=== PATIENT | female | born 1975 | race Caucasian/White ===

== ENCOUNTER → 2018-07-09 08:48 | Outpatient (CLI) | payer OTHER, SELFPAY ==
[2018-07-09 12:10] LABS: Absolute Lymphocyte Count 3.18 X10^3/ul (0.83-4.51); Absolute Neutrophil Count 4.2 X10^3/uL (2.0-7.7); Basophil# 0.09 X10^3/uL; Basophil% 1.1 % (0-1); Eosinophil# 0.28 X10^3/uL; Eosinophils% 3.4 % (0-5); Hematocrit 42.6 % (37-47); Hemoglobin 13.9 g/dl (12.0-15.0); Lymphocyte # 3.18 X10^3/ul (4.0); Lymphocyte % 38.2 % (19-41); Mean Corp Hgb Conc 32.6 g/gl (32-36); Mean Corpuscular Volume 95.1 fL (81-99); Monocyte# 0.53 X10^3/uL; Monocyte% 6.4 % (0-10); Neutrophil # 4.22 X10^3/uL (2.7-7.7); Neutrophil % 50.5 % (47-70); Platelet Count 269 K/mm3 (150-450); RBC Distribution Width SD 41.1 fl (35.1-43.9); Red Blood Count 4.48 M/mm3 (4.2-5.4); White Blood Count 8.3 K/mm3 (4.4-11.0)
[2018-07-09 12:22] LABS: POSITIVE COUNT NO; POSITIVE DIFFERENTIAL NO; POSITIVE MORPHOLOGY NO
[2018-07-09 12:35] LABS: ALB/GLOB Ratio 0.9 RATIO (0.9-2.4); AST(SGOT) 19 U/L (15-37); Alanine Aminotransfer ALT/SGPT 28 U/L (13-56); Albumin, Serum 3.5 g/dL (3.2-5.0); Alkaline Phosphatase 137 U/L (45-117); Anion Gap 6 (5-15); BUN 16 mg/dL (7-18); BUN/Creat Ratio 17.4 RATIO (10-20); Calcium,Total 8.5 mg/dL (8.5-10.1); Chloride 107 mmol/L (98-107); Cholesterol 135 mg/dL (200); Creatinine, Serum 0.92 mg/dL (0.55-1.02); EST Glomerular Filtration Rate 70 mL/min (>60); Est Glom Filt Rate - Afr Amer 85 mL/min (>60); Globulin 3.8 g/dL (2.2-4.2); Glucose 88 mg/dL (74-106); High Density Lipoprotein 44 mg/dL; Potassium 4.4 mmol/L (3.5-5.1); Protein, Total 7.3 g/dL (6.4-8.2); Sodium Level 142 mmol/L (136-145); Triglycerides 92 mg/dL; Very Low Density Lipoprotein 18 mg/dL (5-40)
== END ==
PROVIDERS: Family Provider Family Medicine; PCP Family Medicine; Visit Provider Family Medicine
DX: Z00.00 Encounter for general adult medical examination without abnormal findings (principal)
CPT/HCPCS: 36415; 80053; 80061; 85025

== ENCOUNTER 2018-07-14 07:41 | Day surgery (SDC) | payer OTHER, SELFPAY ==
[2018-06-04 13:23] VITALS: BMI 32.6
[2018-07-14 08:02] LABS: Internal QC Validated? YES +Cl - CLEAR BKGD; Pregnancy, Urine Negative Negative
[2018-07-14 08:03] VITALS: BP 117/70; PULSE 70; RESP 14; TEMP 36.9; O2SAT 100; BMI 32.7
[2018-07-14 08:55] VITALS: BP 109/77; BP 117/70; PULSE 74; RESP 18; TEMP 36.4; O2SAT 98
--- NOTE | 2018-07-14 08:59 | OP.ENDO_ITS ---
Patient Name: Corinne Weeks Procedure Date: 07/14/2018 8:23 AM Date of : 1975 Age: 43 Procedure: Colonoscopy Indications: High risk colon cancer surveillance: Personal history of adenoma (10 mm or greater in size) Providers: Monet Brewster MD Medicines: Monitored Anesthesia Care Patient Profile: Last Colonoscopy: 3 years ago. Complications: No immediate complications. Procedure: Pre-Anesthesia Assessment: - Prior to the procedure, a History and Physical was performed, and patient medications and allergies were reviewed. The patient's tolerance of previous anesthesia was also reviewed. The risks and benefits of the procedure and the sedation options and risks were discussed with the patient. All questions were answered, and informed consent was obtained. Prior Anticoagulants: The patient has taken no previous anticoagulant or antiplatelet agents. ASA Grade Assessment: II - A patient with mild systemic disease. After reviewing the risks and benefits, the patient was deemed in satisfactory condition to undergo the procedure. After I obtained informed consent, the scope was passed under direct vision. Throughout the procedure, the patient's blood pressure, pulse, and oxygen saturations were monitored continuously. The colonoscope was introduced through the anus and advanced to the cecum, identified by the appendiceal orifice, ileocecal valve and palpation. The colonoscopy was performed without difficulty. The patient tolerated the procedure well. The quality of the bowel preparation was good. Scope In: 8:35:55 AM Scope Withdrawal Time 0 hours 12 minutes 57 seconds Scope Out: 8:53:20 AM Total Procedure Duration Time 0 hours 17 minutes 25 seconds Findings: A single small-mouthed diverticulum was found in the sigmoid colon. The exam was otherwise without abnormality on direct and retroflexion views. The perianal and digital rectal examinations were normal. Impression: - Diverticulosis in the sigmoid colon. - The examination was otherwise normal on direct and retroflexion views. - No specimens collected. Recommendation: - Discharge patient to home. - High fiber diet. - Continue present medications. - Repeat colonoscopy in 5 years for surveillance, due to hx of 11mm TA at age 40. Procedure Code(s): --- Professional --- G0105, Colorectal cancer screening; colonoscopy on individual at high risk Diagnosis Code(s): --- Professional --- Z86.010, Personal history of colonic polyps K57.30, Diverticulosis of large intestine without perforation or abscess without bleeding CPT copyright 2017 [employer]. All rights reserved. The codes documented in this report are preliminary and upon data processor review may be revised to meet current compliance requirements. MD Monet Nguyễn MD 07/14/2018 8:58:55 AM This report has been signed electronically. Number of Addenda: 0 Note Initiated On: 07/14/2018 8:23 AM
[2018-07-14 09:00] VITALS: BP 102/73; BP 117/70; PULSE 65; RESP 18; O2SAT 99
[2018-07-14 09:05] VITALS: BP 105/84; BP 117/70; PULSE 66; RESP 18; O2SAT 100
[2018-07-14 09:10] VITALS: BP 104/67; BP 117/70; PULSE 67; RESP 18; TEMP 36.2; O2SAT 100
[2018-07-14 09:20] VITALS: BP 117/70
== END 2018-07-14 09:29 | disposition home or self-care (01) ==
LOC: EN 07:42 → AC 07:44
PROVIDERS: Anesthesiology; Family Provider Family Medicine; PCP Family Medicine; Referring Provider Surgery; Visit Provider Surgery
PROC: 0DJD8ZZ Inspection of Lower Intestinal Tract, Via Natural or Artificial Opening Endoscopic (ICD-10-PCS; CPT 45378; principal; 2018-07-14 08:40)
DX: K57.30 Diverticulosis of large intestine without perforation or abscess without bleeding (principal); Z86.010 Personal history of colon polyps; Z80.0 Family history of malignant neoplasm of digestive organs; Z87.891 Personal history of nicotine dependence
CPT/HCPCS: 45378; 81025; J7120

== ENCOUNTER → 2019-06-15 07:35 | Outpatient (CLI) | payer OTHER, SELFPAY ==
--- NOTE | 2019-06-15 07:40 | BI_ITS ---
MAMMOGRAPHY - BILATERAL SCREENING REASON FOR EXAM: Female, 43 years old. Routine annual screening examination. PERTINENT HISTORY: Aunts with breast cancer. TECHNIQUE: Digital bilateral breast carol (3D mammographic acquisition) in the CC and MLO projections. 2-D mediolateral oblique (MLO) and craniocaudad (CC) views of both breasts were obtained. CAD: Full Field Digital Mammography with Computer Added Detection was performed. COMPARISON: Comparison is made with prior outside examination of November 19, 2016. FINDINGS: Breast Composition: The breasts are extremely dense, which lowers the sensitivity of mammography. There are no dominant masses or suspicious calcifications. No other significant abnormalities are identified. There has been no significant change since the prior study. BI/SCREEN MAMM (CAD) W/CAROL BILAT IMPRESSION: Stable bilateral screening mammogram. Yearly follow-up mammogram recommended. (A) ASSESSMENT CATEGORY: BIRADS Category 1: Negative. A letter regarding these results will be sent to the patient by the facility within 30 days. Approximately 10% of breast cancers are not detected by mammography. A normal mammogram should not delay biopsy of a clinically suspicious abnormality. [id number] Electronically Signed: Jigar Chi, at 10:44 EDT , Service support ,
== END ==
PROVIDERS: Family Provider Family Medicine; PCP Family Medicine; Referring Provider Family Medicine; Visit Provider Family Medicine
DX: Z12.31 Encounter for screening mammogram for malignant neoplasm of breast (principal)
CPT/HCPCS: 77063; 77067

== ENCOUNTER 2021-11-02 16:26 | Outpatient (CLI) | payer BC, SELFPAY ==
--- NOTE | 2021-11-02 16:30 | RAD_ITS ---
EXAM: XR LEFT FOOT, 2 VIEWS CLINICAL INDICATION: FRACTURE FOLLOW UP TECHNIQUE: Frontal and lateral views of the left foot. This report was created using [employer] report generation technology. COMPARISON: None. FINDINGS: BONES/JOINTS: There is a calcaneal spur. No acute fracture. No subluxation. Normal alignment. Preservation of the joint space. No sclerotic or destructive changes observed. SOFT TISSUES: Unremarkable. No soft tissue swelling or gas. No radiopaque foreign body. RAD/Foot 2 Views IMPRESSION: No acute findings in the left foot. Electronically Signed: Kt Major MD at 16:33 EST ,
== END 2021-11-02 23:59 | disposition home or self-care (01) ==
LOC: MTRAD 16:29
PROVIDERS: PCP Family Medicine; Referring Provider Internal Medicine; Visit Provider Internal Medicine
DX: M79.672 Pain in left foot (principal); S92.902D Unspecified fracture of left foot, subsequent encounter for fracture with routine healing
CPT/HCPCS: 73620

== ENCOUNTER → 2023-01-18 | Outpatient (CLI) | payer OTHER, SELFPAY ==
[2023-01-29 12:09] LABS: HPV APTIMA, High Risk Negative (Negative)
== END | disposition home or self-care (01) ==
LOC: LABSPEC 16:52
PROVIDERS: PCP Family Medicine; Visit Provider Registered Nurse
DX: Z12.4 Encounter for screening for malignant neoplasm of cervix (principal)
CPT/HCPCS: 87624; 88175; G0145

== ENCOUNTER → 2023-01-23 | Outpatient (CLI) | payer OTHER, SELFPAY ==
--- NOTE | 2023-01-23 15:36 | BI_ITS ---
MAMMOGRAPHY - BILATERAL SCREENING REASON FOR EXAM: Female, 47 years old. Routine annual screening examination. PERTINENT HISTORY: Aunts with breast cancer. History of prior right needle biopsy. TECHNIQUE: Digital bilateral breast carol (3D mammographic acquisition) in the CC and MLO projections. 2-D mediolateral oblique (MLO) and craniocaudad (CC) views of both breasts were obtained. CAD: Full Field Digital Mammography with Computer Added Detection was performed. COMPARISON: Comparison is made with prior study dated June 15, 2019. FINDINGS: Breast Composition: The breasts are extremely dense, which lowers the sensitivity of mammography. There are no dominant masses or suspicious calcifications. There is a tissue clip marker is seen in the upper retroareolar region of the right breast. No other significant abnormalities are identified. There has been no significant change since the prior study. BI/SCRN MAMM (CAD)W/CAROL BILAT IMPRESSION: Stable bilateral screening mammogram. Yearly follow-up mammogram recommended. (A) ASSESSMENT CATEGORY: BIRADS Category 2: Benign. A letter regarding these results will be sent to the patient by the facility within 30 days. Approximately 10% of breast cancers are not detected by mammography. A normal mammogram should not delay biopsy of a clinically suspicious abnormality. [id number] Electronically Signed: Jigar Chi MD at 8:56 EDT ,
== END | disposition home or self-care (01) ==
PROVIDERS: PCP Family Medicine; Referring Provider Registered Nurse; Visit Provider Registered Nurse
DX: Z12.31 Encounter for screening mammogram for malignant neoplasm of breast (principal)
CPT/HCPCS: 77063; 77067

== ENCOUNTER → 2025-02-12 | Outpatient (CLI) | payer BC, SELFPAY ==
--- OUTSIDE RECORDS SUMMARY | 2025-02-12 07:13 | XMS RPT_ITS | CCD ---
Author Organization [facility] Care Team Providers Care Lining Cementer Name Role Phone Dr. Marilin Max Primary Care Provider Dr. Marilin Max Referring Provider Bertha GRAMAJO, ROX Gilbert Attending Provider Dr. Marilin Max Primary Care Provider Dr. Marilin Max Referring Provider OSCAR Coley Attending Provider Marilin Max MD Primary Care Provider Dr. Marilin Max MD Primary Care Provider [phone] Winter UMANZOR, Dr. Gaston Referring Provider Radha Lim Attending Provider Marilin Max Primary Care Unavailable Marilin Max Referring Unavailable Radha Guillen NP Attending Unavailable Monet Brewster Attending Unavailable Care Physician, No Primary Primary Care Unava ilable Care Physician, No Primary Primary Care Unava ilable Radha Guillen NP Attending Unavailable Radha Guillen NP Referring Unavailable Medications Current Medications Medication Drug Class(es) Dates Sig (Normalized) Sig (Original) escitalopram 10 mg oral tablet (1 source) Serotonin Reuptake Inhibitor Start: 07-04-2017 take 1 tablet by mouth once daily escitalopram oxalate (LEXAPRO) 10 mg tablet Indications: Anxiety Take 1 tablet by mouth once daily. 90 tablet 1 07/04/2017 Active Ibuprofen (1 source) Nonsteroidal Anti-inflammatory Drug IBUPROFEN ORAL Take by mouth. Active Lacona (Nk) (1 source) Start: 01-22-2024 Lacona (Nk) Active January 22, 2024 12:00am Completed/Discontinued Medications Medication Drug Class(es) Dates Sig (Normalized) Sig (Original) benzonatate 200 mg oral capsule (3 sources) Non-narcotic Antitussive Start: 09-06-2021 End: 01-18-2023 take 1 capsule by mouth three times daily as needed for cough Benzonatate 200 mg capsule Discontinued 200 mg PO THREE TIMES A DAY as needed for cough September 06, 2021 1:00am January 18, 2023 3:23pm Problems Active Problems Problem Classification Problem Date Documented Da te Episodic/Chronic Acute bronchitis (3 sources) Acute bronchitis; Translations: [Acute bronchitis, unspecified] Episodic Adjustment disorders (1 source) Adjustment disorder; Translations: [Adjustment disorder, unspecified] Onset: 09-15-2007 03-05-2024 Chronic Anxiety disorders (1 source) Anxiety; Translations: [Anxiety disorder, unspecified] Onset: 07-23-2016 07-23-2016 Chronic Immunizations and screening for infectious disease (3 sources) Patient encounter status; Translations: [Encounter for screening for COVID-19] Episodic Nutritional deficiencies (1 source) Vitamin D deficiency, unspecified; Translations: [Vitamin D deficiency, unspecified] Onset: 02-01-2025 Chronic Other screening for suspected conditions (not mental disorders or infectious disease) (7 sources) Encounter for screening mammogram for malignant neoplasm of breast; Translations: [Encounter for other screening for malignant neoplasm of breast] Onset: 02-01-2025 Episodic Unclassified (2 sources) Encounter for screening for malignant neoplasm of colon; Translations: [Z12.11 - Encounter for screening for malignant neoplasm of colon] Past or Other Problems Problem Classification Problem Date Documented Da te Episodic/Chronic Abdominal pain (1 source) Abdominal pain; Translations: [Unspecified abdominal pain] Onset: 09-14-2014 09-14-2014 Episodic Other and unspecified benign neoplasm (1 source) Fibroadenoma of breast; Translations: [Benign neoplasm of unspecified breast] Onset: 12-07-2016 12-07-2016 Episodic Other female genital disorders (1 source) Premenstrual tension syndrome; Translations: [Premenstrual tension syndrome] Onset: 12-27-2008 Resolved: 08-22-2012 08-22-2012 Chronic Other female genital disorders (1 source) Abnormal uterine bleeding; Translations: [Abnormal uterine and vaginal bleeding, unspecified] Onset: 07-15-2012 Resolved: 08-22-2012 08-22-2012 Chronic Other gastrointestinal disorders (1 source) Diarrhea; Translations: [Diarrhea, unspecified] Onset: 09-14-2014 09-14-2014 Episodic Results Test Name Value Interpretation Reference Range Facility Marketing And Outreach Coordinator Office Visit Reporton 02-01-2025 Marketing And Outreach Coordinator Office Visit Report [facility] [address], [address] [place] [address] OFFICE VISIT Date of Service: 02/01/25 MR#: [id number] Acct: [id number] Name: CORINNE WEEKS Rep #: [id number] : 1975 Provider: GINA anaya Age/Sex: 49/F Location: [facility] [place] Status: Signed Intake Vital Signs 01/22/24 15:22 02/01/25 15:10 02/01/25 15:19 Height 5 ft 8 in 5 ft 8 in 5 ft 8 in Weight: 242 lb BMI 36.8 BP 124/82 H 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 Complaint: 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 Production 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 Required: No Is patient in pain?: No Allergies No Known Allergies Allergy (Unverified 02/01/25 15:10) Medications ???Medication ???Instructions ???Recorded ???Confirmed ???Type NK 01/22/24 02/01/25 History Is last menstrual period known: No Post menopausal: No Patient : No : No PFSH Medical History History of endometrial biopsy Family History Mother Colon cancer Hypertension Father Diabetes Social History Smoking Status: Former smoker alcohol intake: current alcohol intake frequency: a few times a week HPI Encounter for routine gynecological examination Details: CORINNE WEEKS is a 49 year old who presents for annual exam. Denies LANDSCAPE ACCOUNT MANAGER concerns. No menses since ablation Last PAP: 2022 History of abnormal PAP: no Last mammogram: 2022 History of abnormal mammogram: benign bx Colon cancer screening: Q5yr, 2018 Other preventative health care screenings: none Female Reproductive History Questions: metorrhagia: No, sexually active: Yes, dyspareunia: No and PCB: No ROS Const Constitutional: Denies fatigue, weight gain or weight loss Cardio Card: Denies chest pain Resp Resp: Denies cough or dyspnea on exertion GI GI: Denies abdominal pain, bloating, change in stool character, constipation or vomiting : Reports as per HPI; Denies difficulty voiding, pelvic pain, urinary frequency, urinary incontinence, urinary urgency, vaginal discharge or vaginal pruritus Exam Const General: cooperative, healthy appearing, no acute distress and well developed Orientation: alert, oriented to person and oriented to place HENW[place] Head: normal to inspection Neck Neck: normal visual inspection Thyroid: thyroid normal Lymphatic: no lymphadenopathy noted Chest Breast inspection: normal inspection of the breasts and normal inspection of the axillae Breast palpation: normal palpation of the breasts, normal palpation of the axillae and no axillary lymphadenopathy Resp Effort Inspection: normal respiratory effort GI Palpation: soft, no masses and nontender Rectal Exam: deferred External Female Exam: normal external appearance and normal appearance of the urethra Urethra: normal appearance of the urethra and normal palpation Speculum Exam - Vagina: normal appearance of the vagina and normal vaginal discharge Speculum Exam - Cervix: normal appearance of the cervix Bimanual Exam- Vagina Uterus: normal bimanual exam, uterine size normal, uterine shape normal and non-tender Bimanual Exam- Adnexa, other: normal adnexae, no masses, normal and non-tender Pelvic Support: normal Neuro General: patient alert and patient oriented x3 Psych Affect: normal affect Coding Level of Care Code Off vis,est,prev 40-64yrs Diagnoses Encounter for gynecological examination without abnormal finding Z01.419 Gynecological examination findings: abnormal findings ABSENT Assessment and Plan Assessment and Plan (1) Encounter for routine gynecological examination: Qualifiers: Gynecological examination findings: abnormal findings ABSENT Qualified Code(s): Z01.419 - Encounter for gynecological examination (general) (routine) without abnormal findings Orders: Orders SCRN MAMM (CAD)W/CAROL BILAT Today Z12.39 - Encounter for other screening for malignant neoplasm of breast Vitamin D,25 Hydroxy Today E55.9 - Vitamin D deficiency, unspecified Lipid Profile Today Z13.220 - Encounter for screening for lipoid disorders Glucose Today Z13.1 - Encounter for screening for diabetes mellitus Thyroid Stim Hormone (TSH) Today Z13.29 - Encounter for screening for other suspected endocrine disorder Referrals General Surgery Z12.11 - Encounter for screening for malignant neoplasm of colon Plan Completed breast and pelvic exam Reviewed diet and exercise Pap 2022 Mammogram ordered breast self exam encouraged monthly Health screen labs Information for PCPs to establish with Colonoscopy ref to Dr Brewster as she is overdue RTO 1 year, prn with problems Radha Guillen OTR REFR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 02/01/25 1536 Date _ (more content not included)... Normal [facility] Cervical or vagninal specime n microscopic examination by cytology stain (reported asOrdered By: Radha Coely on 01-18-2023 Cytology report Cyto stain Doc (Cvx/Vag) Comment . [facility] Comment on above: The Pap smear is a s creening test designed to aid in thedetection of premalignant and malignant conditions of theuterine cervix. It is not a diagnostic procedure andshould not be used as the sole means of detecting cervicalcancer. Both false-positive and false-negative reports dooccur. Detection in cervical specim en of any of human papilloma virus (HPV) 16, 18, 31, 33,Ordered By: Radha Coley on 01-18-2023 HPV 16+18+31+33+35+39+45+51 +52+56+58+59+66+68 DNA Probe+sig amp Ql (Cvx) Negative Negative [facility] Comment on above: This nucleic acid am plification test detects fourteen high-risk HPV types (16,18,31,33,35,39,45,51,52,56,58,59,66,68)without differentiation. Laboratory - CytologyOrdered By: Radha Coley on 01-18-2023 Nurse Instructor Cyto stain Nom (Cvx/Vag) [ID] Comment . [facility] Comment on above: Conor Jacob totechnologist (ASCP) Laboratory - Miscellaneous t estsOrdered By: Radha Coley on 01-18-2023 Service comment (Unsp spec) [Interp] Comment . [facility] Comment on above: This liquid based Th inPrep(R) pap test was screened withthe use of an image guided system. Service comment (Unsp spec) [Interp] . . [facility] Liquid-based cerv Pap + CT/G C by SUNI w reflex to high-risk HPV for ASCUSOrdered By: Radha Coley on 01-18-2023 Cytology report Cyto stain.thin prep Doc (Cvx/Vag) Comment . [facility] Comment on above: Criteria not met, HP V Genotype not performed.Performed at: [facility] [id number] [place], [place] [id number] Director: Santos Cole MD, Phone: [phone] at: - [facility] [id number] Director: Gale Moseley MD, Phone: [phone] at: =G - [facility] [id number] Director: Gale Moseley MD, Phone: [phone] No Panel InformationOrdered By: Radha Coley on 01-18-2023 Pathology report final diagnosis Narrative Comment . [facility] Comment on above: NEGATIVE FOR INTRAEP ITHELIAL LESION OR MALIGNANCY. CNOVon 10-16-2021 CNOV Office Visit (UCTR ) CORINNE WEEKS ([id number]) 1975 F Date Time Provider Department 10/16/21 8:45 AM KARIE PALACIOS [facility] During your visit today, we recorded the following information about you: Temperature Pulse Respiration Blood pressure 97.7 degrees 88/minute 16/minute 118/70 Weight 103 kg Karie Palacios APRN.OTR REFR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 10/16/2021 10:19 AM Signed Subjective HPI HPI Corinne Weeks is a 46 year old female who presents today for CC of fall this morning resulting in left foot pain and right leg pain. Symptoms are worsened by walking. Denies numbness/tingling of bilat lower extremities. Denies past injury/surgery to bilat lower extremity. Denies hx of diabetes. .Patient presents with: Pain (foot): left foot pain, fell down steps this am PAST MEDICAL HISTORY Diagnosis Date - Menorrhagia PAST SURGICAL HISTORY Procedure Laterality Date - COLONOSCOPY FLX DX W/COLLJ SPEC WHEN PFRMD 10/27/2014 Colonoscopy - PAST SURGICAL HISTORY OF upper teeth extraction - S CATH ABLATION THERMACHOICE 2011 menorrhagia ALLERGIES Patient has no known allergies. MEDICATIONS escitalopram oxalate (LEXAPRO) 10 mg tablet Take 1 tablet by mouth once daily. IBUPROFEN ORAL Take by mouth. FAMILY HISTORY Problem Relation Age of Onset - Hypertension Mother - Colon Cancer Mother - Diabetes Father - other (Skin Cancer Removal) Brother Regular Screenings - Heart Maternal Grandmother GA - Multiple Sclerosis Daughter - Breast Cancer Paternal Aunt - Breast Cancer Paternal Aunt - Cancer Maternal Uncle Throat Cancer - Colon Cancer Maternal Aunt Social History Tobacco Use - Smoking status: Former Smoker Packs/day: 0.80 Years: 20.00 Pack years: 16.00 Types: Cigarettes - Smokeless tobacco: Never Used Substance Use Topics - Alcohol use: Yes Comment: Rarely - Drug use: No ROS Objective Blood pressure 118/70, pulse 88, temperature 36.5 ?C (97.7 ?F), resp. rate 16, weight 103 kg (227 lb), last menstrual period 09/11/2014, SpO2 98 %. Physical Exam Constitutional: General: She is not in acute distress. Appearance: She is not toxic-appearing or diaphoretic. HENT: Head: Normocephalic and atraumatic. Cardiovascular: Pulses: Dorsalis pedis pulses are 1+ on the right side and 1+ on the left side. Posterior tibial pulses are 1+ on the right side and 1+ on the left side. Pulmonary: Effort: Pulmonary effort is normal. No accessory muscle usage or respiratory distress. Musculoskeletal: Right knee: Normal. Right lower leg: Swelling, tenderness and bony tenderness present. No deformity or lacerations. Right ankle: Normal. Left ankle: Normal. Left Achilles Tendon: No tenderness. Legs: Neurological: Mental Status: She is alert and oriented to person, place, and time. ASSESSMENT/PLAN: 1. Foot injury, left, initial encounter - ICD9: 959.7, ICD10: S99.922A (primary diagnosis) As below - XR FOOT GENERAL 3V AP/LAT/OBL LEFT Impression: Transverse fracture of the proximal phalanx of the left second toe ? Dictated by : AUGIE RUDD MD - CEPHALEXIN 500 MG CAPSULE 2. Right leg injury, initial encounter - ICD9: 959.7, ICD10: S89.91XA xr negative - XR TIBIA FIBULA 2V AP/LAT RIGHT Impression: 1. No acute fracture or dislocation. ? ? Dictated by : AUGIE RUDD MD 3. Closed non-physeal fracture of proximal phalanx of lesser toe of left foot, initial encounter - ICD9: 826.0, ICD10: S92.512A Post op shoe provided, pain relief discussed F/u in 7-10 days for continued/changing/wo rsening s/s. Red flags discussed. Agrees to plan Karie Palacios APRN.OTR REFR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 Referring Provider: SELF [200] Allergies As of Date: 10/16/2021 (No Known Allergies) Date Reviewed: 10/16/2021 Reviewed by: Karie Palacios APRN.OTR REFR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 - Fully Assessed Reason for Visit: Pain (foot) [760] Cmt: left foot pain, fell down steps this am Primary Visit Diagnosis:Foot injury, left, initial encounter [S99.922A] Other Visit Diagnoses:Right leg injury, initial encounter [S89.91XA] Closed non-physeal fracture of proximal phalanx of lesser toe of left foot, initial encounter [S92.512A] Order(s):XR FOOT GENERAL 3V AP/LAT/OBL LEFT [[id number]] Order #: [id number]. #:[id number] XR TIBIA FIBULA 2V AP/LAT RIGHT [[id number]] Order #: [id number]. #:[id number] cephALEXin (KEFLEX) 500 mg capsuleTake 1 capsule by mouth twice daily for 5 days.Disp: 10 capsuleRfl: 0 Prescriptions as of 10/16/2021 - cephALEXin (KEFLEX) 500 mg capsule Take 1 capsule by mouth twice daily for 5 days. - escitalopram oxalate (LEXAPRO) 10 mg tablet Take 1 tablet by mouth once daily. - IBUPROFEN ORAL Take by mouth. Problem List As Of Date 10/16/2021 Noted Resolved ADJUSTMENT REACTION NOS [F43.20] 09/15/2007 Premenstrual tension syndromes [N94.3] 12/27/2008 08/22/2012 Abnormal uter (more content not included)... Normal [facility] No Panel InformationOrdered By: Ccf Provider on 10-16-2021 [facility] No Panel Informationon 10-16 Radiology Study observation (narrative) [facility] XR FOOT 3V AP/LAT/OBL LTon 0 10-16-2021 XR FOOT 3V AP/LAT/OBL LT * * *Final Report* * * DATE OF EXAM: Oct 16 2021 9:36AM WOX 5336 - XR FOOT 3V AP/LAT/OBL LT / PROCEDURE REASON: Foot injury, left, initial encounter * * * * Physician Interpretation * * * * Indication: Left foot pain after fall downstairs Comparison: None 3 views of the left foot are obtained. There is a transverse fracture of the distal aspect of the proximal phalanx of the left second toe. No dislocation. Joint spaces are maintained. There is a plantar calcaneal spur. Impression: Transverse fracture of the proximal phalanx of the left second toe Social Media Sr Strategy Manager: [facility] Transcribe Date/Time: Oct 16 2021 9:46A Dictated by : AUGIE RUDD MD This examination was interpreted and the report reviewed and electronically signed by: AUGIE RUDD MD on Oct 16 2021 9:48AM EST [id number] Normal [facility] XR Foot - left AP and Latera l and obliqueon 10-16-2021 * * *Final Report* * * DATE OF EXAM: Oct 16 2021 9:36AM WOX 5336 - XR FOOT 3V AP/LAT/OBL LT / PROCEDURE REASON: Foot injury, left, initial encounter * * * * Physician Interpretation * * * * Indication: Left foot pain after fall downstairs Comparison: None 3 views of the left foot are obtained. There is a transverse fracture of the distal aspect of the proximal phalanx of the left second toe. No dislocation. Joint spaces are maintained. There is a plantar calcaneal spur. Impression: Transverse fracture of the proximal phalanx of the left second toe Social Media Sr Strategy Manager: [facility] Transcribe Date/Time: Oct 16 2021 9:46A Dictated by : AUGIE RUDD MD This examination was interpreted and the report reviewed and electronically signed by: AUGIE RUDD MD on Oct 16 2021 9:48AM [facility] DIVISION OF RADIOLOGY Provider, [facility] - 10/16/2021 * * *Final Report* * * DATE OF EXAM: Oct 16 2021 9:36AM WOX 5336 - XR FOOT 3V AP/LAT/OBL LT / PROCEDURE REASON: Foot injury, left, initial encounter * * * * Physician Interpretation * * * * Indication: Left foot pain after fall downstairs Comparison: None 3 views of the left foot are obtained. There is a transverse fracture of the distal aspect of the proximal phalanx of the left second toe. No dislocation. Joint spaces are maintained. There is a plantar calcaneal spur. Impression: Transverse fracture of the proximal phalanx of the left second toe Social Media Sr Strategy Manager: [facility] Transcribe Date/Time: Oct 16 2021 9:46A Dictated by : AUGIE RUDD MD This examination was interpreted and the report reviewed and electronically signed by: AUGIE RUDD MD on Oct 16 2021 9:48AM [facility] XR TIBIA FIBULA 2V AP/LAT RT on 10-16-2021 XR TIBIA FIBULA 2V AP/LAT RT * * *Final Report* * * DATE OF EXAM: Oct 16 2021 9:36AM WOX 5266 - XR TIBIA FIBULA 2V AP/LAT RT / PROCEDURE REASON: Right leg injury, initial encounter * * * * Physician Interpretation * * * * Indication: Right leg pain Comparison: None AP and lateral x-rays of the right tibia and fibula are obtained. There is normal architecture and mineralization of the bones. There is no acute fracture or dislocation. Joint spaces are maintained. Impression: 1. No acute fracture or dislocation. Social Media Sr Strategy Manager: [facility] Transcribe Date/Time: Oct 16 2021 9:49A Dictated by : AUGIE RUDD MD This examination was interpreted and the report reviewed and electronically signed by: AUGIE RUDD MD on Oct 16 2021 9:49AM EST [id number] Normal [facility] XR Tibia and Fibula - right AP and Lateralon 10-16-2021 * * *Final Report* * * DATE OF EXAM: Oct 16 2021 9:36AM WOX 5266 - XR TIBIA FIBULA 2V AP/LAT RT / PROCEDURE REASON: Right leg injury, initial encounter * * * * Physician Interpretation * * * * Indication: Right leg pain Comparison: None AP and lateral x-rays of the right tibia and fibula are obtained. There is normal architecture and mineralization of the bones. There is no acute fracture or dislocation. Joint spaces are maintained. Impression: 1. No acute fracture or dislocation. Social Media Sr Strategy Manager: KELIN Transcribe Date/Time: Oct 16 2021 9:49A Dictated by : AUGIE RUDD MD This examination was interpreted and the report reviewed and electronically signed by: AUGIE RUDD MD on Oct 16 2021 9:49AM EST DIVISION OF RADIOLOGY Provider, [facility] - 10/16/2021 * * *Final Report* * * DATE OF EXAM: Oct 16 2021 9:36AM WOX 5266 - XR TIBIA FIBULA 2V AP/LAT RT / PROCEDURE REASON: Right leg injury, initial encounter * * * * Physician Interpretation * * * * Indication: Right leg pain Comparison: None AP and lateral x-rays of the right tibia and fibula are obtained. There is normal architecture and mineralization of the bones. There is no acute fracture or dislocation. Joint spaces are maintained. Impression: 1. No acute fracture or dislocation. Social Media Sr Strategy Manager: [facility] Transcribe Date/Time: Oct 16 2021 9:49A Dictated by : AUGIE RUDD MD This examination was interpreted and the report reviewed and electronically signed by: AUGIE RUDD MD on Oct 16 2021 9:49AM EST [facility] No Panel Informationon 09-06 POC SARS CoV-2 Antigen Negative Wo [facility] Work Phone: Vital Signs Date Time Vital Sign Value Performing Clinician Faci lity 02-01-2025 15:19-0400 Body height 172.[address] Marilin Max MD Work Phone: [facility] 02-01-2025 15:10-0400 Body mass index (BMI) [Ratio] 36.8 kg/m2 Dr. Marilin Max MD Work Phone: [facility] 02-01-2025 15:10-0400 Body weight 109.[address] Marilin Max MD Work Phone: [facility] 02-01-2025 15:10-0400 Diastolic blood pressure 82 mm[Hg] Dr. Marilin Max MD Work Phone: [facility] 02-01-2025 15:10-0400 Systolic blood pressure 124 mm[Hg] Dr. Marilin Max MD Work Phone: [facility] 01-18-2023 15:28-0400 Body height 172.[address] Marilin Max Work Phone: [facility] 01-18-2023 15:09-0400 Body mass index (BMI) [Ratio] 34.9 kg/m2 Dr. Marilin Max Work Phone: [facility] 01-18-2023 15:09-0400 Body weight 104.[address] Marilin Max Work Phone: [facility] 01-18-2023 15:09-0400 Diastolic blood pressure 77 mm[Hg] Dr. Marilin Max Work Phone: [facility] 01-18-2023 15:09-0400 Systolic blood pressure 121 mm[Hg] Dr. Marilin Max Work Phone: [facility] 09-06-2021 09:45-0500 Body height 172.[address] Marilin Max Work Phone: [facility] Work Phone: 09-06-2021 09:45-0500 Body mass index (BMI) [Ratio] 34.3 kg/m2 Dr. Marilin Max Work Phone: [facility] Work Phone: 09-06-2021 09:45-0500 Body temperature 97.5 [degF] Dr. Marilin Max Work Phone: [facility] Work Phone: 09-06-2021 09:45-0500 Body weight 102.[address] Marilin Max Work Phone: [facility] Work Phone: 09-06-2021 09:45-0500 Diastolic blood pressure 62 mm[Hg] Dr. Marilin Max Work Phone: [facility] Work Phone: 09-06-2021 09:45-0500 Heart rate 93 /min Dr. Marilin Max Work Phone: [facility] Work Phone: 09-06-2021 09:45-0500 Respiratory rate 16 /min Dr. Marilin Max Work Phone: [facility] Work Phone: 09-06-2021 09:45-0500 SaO2% (BldA) [Mass fraction] 98 % Dr. Marilin Max Work Phone: [facility] Work Phone: 09-06-2021 09:45-0500 Systolic blood pressure 126 mm[Hg] Dr. Marilin Max Work Phone: [facility] Work Phone: Encounters Encounter Date Encounter Type Care Provider Facility Start: 03-17-2025 ambulatory Monet Robotham Facilit y:[facility] Start: 02-12-2025 ambulatory No Primary Car e Physician Facility:[facility] Start: 02-01-2025 End: 02-01-2025 Patient encounter procedure Radha Guillen ASSOCIATE PROFESSOR OF COMMUNICATION-C -[facility] Work Phone: Start: 02-01-2025 End: 02-01-2025 Patient encounter status Radha Guillen ASSOCIATE PROFESSOR OF COMMUNICATION-C [facility] Start: 02-01-2025 End: 02-01-[address] Marilin Max MD Work Phone: [facility] Work Phone: Start: 01-23-2023 End: 01-23-[address] Marilin Max Work Phone: [facility] Work Phone: Start: 01-23-2023 End: 01-23-2023 Patient encounter procedure Dr. Marilin Max Work Phone: [facility] Work Phone: Start: 01-18-2023 End: 01-18-[address] Marilin Max Work Phone: [facility] Specimen Work Phone: Start: 01-18-2023 End: 01-18-[address] Marilin Max Work Phone: [facility] Work Phone: Start: 11-02-2021 End: 11-02-[address] Marilin Max Work Phone: [facility] [place] Start: 10-16-2021 End: 10-16-2021 Subsequent hospital visit by physician Vikas [facility] Work Phone: Radiology Comment on above: Foot injury, left, i nitial encounter [S99.922A] Start: 09-06-2021 End: 09-06-[address] Marilin Max Work Phone: [facility] Procedures Date Procedure Procedure Detail Performing Clinician Start: 01-23-2023 Screening mammography Dixie Max Work Phone: Start: 11-02-[address] Marilin Max Work Phone: Start: 10-16-2021 Radex foot complete minimum 3 views Karie Palacios APRN.CNP Work Phone: Start: 04-14-2016 Lipid 1996 panel - S mustapha or Plasma Xr Laurel Work Phone: Start: 10-27-2014 Colonoscopy Xr Horacio Work Phone: Plan of Treatment Date Care Activity Detail Author Start: 02-01-2025 Patient referral [facility] Work Phone: Start: 04-26-2024 Covid-19 Vaccine ( season) Covid-19 Vaccine () [facility] Start: 04-26-2024 Influenza vaccination Influenza Vaccine (#1) [facility] [facility] Start: 2023 Shingrix Vaccine (1 of 2) Shingrix Vaccine (1 of 2) [facility] Start: 11-19-2021 Screening for malignant neoplasm of cervix Cervical Cancer Screening [facility] Start: 04-14-2021 Lipid panel Lipid Screening [facility] Start: 04-14-2019 Diabetes Screening Diabetes Screening [facility] Start: 2018 Screening for malignant neoplasm of colon [facility] Start: 11-19-2017 Screening for malignant neoplasm of breast Mammogram Screening [facility] Start: 10-27-2017 Screening for malignant neoplasm of colon [facility] Start: 1992 Hepatitis B Vaccine (1 of 3 - 19+ 3-dose series) Hepatitis B Vaccine (1 of 3 - 19+ 3-dose series) [facility] Start: 1992 Urine microalbumin profile DTaP,Tdap,Td Vaccine (1 - Tdap) [facility] Start: 1991 Depression Screening Depression Screening [facility] Start: 1991 Hepatitis C screening Hepatitis C Screening [facility] Start: 1991 HIV screening HIV Screening [facility] Glucose [Mass/volume ] in Serum or Plasma [facility] Lipid 1996 panel - S mustapha or Plasma [facility] MG Breast - bilatera l Screening [facility] Patient referral [facility] Work Phone: Thyroid stimulating hormone measurement [facility] Vitamin D, 25-hydrox y measurement [facility] Immunizations Immunization Date Immunization Notes Care Provider [facility] 05-22-2016 influenza virus vaccine, unspecified formulation X[facility] Work Phone: [facility] 05-24-2009 influenza virus vaccine, unspecified formulation X[facility] Work Phone: [facility] Work Phone: Payers Date Payer Category Payer Self-pay [id number] 2025 Unknown [id number] 2020 Unknown [employer] C[employer] PPO OOS [id number] 2020-Present [phone] [address] [place] [address] PPO [id number] Private Health Insurance [facility] [id number] Unknown [id number] Unknown [id number] Unknown [id number] Unknown [id number] Social History Date Type Detail Facility Start: 09-06-2021 End: 01-18-2023 Tobacco smoking status NHIS Unknown if ever smoked [facility] Start: 07-09-2018 Cigarettes [facility] Start: 1975 Sex Assigned At Female W [facility] Start: 11-02-2015 End: 01-18-2023 Tobacco smoking status NHIS Ex-smoker [facility] History of tobacco use Current smoker [facility] History of tobacco use Cigarette Smoker [facility] Start: 11-02-2015 End: 10-16-2021 Cigarettes smoked current (pack per day) - Reported 0.8 [facility] Start: 11-02-2015 Tobacco use and exposure Smokeless tobacco non-user [facility] Start: 10-16-2021 Alcoholic beverage intake Current drinker of alcohol (finding) [facility] Start: 10-16-2021 Tobacco use panel [facility] Start: 11-19-2016 Alcohol Comment Rarely [facility] Start: 1975 Sex assigned at Not on file C [facility] Start: 09-16-2021 End: 10-16-2021 Exposure to SARS-CoV-2 (event) Not sure [facility] Clinical Note 01-18-2023 Note Date & Type Note Facility 01-18-2023 Note [facility] Pap Smear Specimen Adequacy January 18, 2023 5:05pm Comment . Satisfactory for evaluation. Endocervical and/or squamous metaplasticcells (endocervical component) are present. Comment on above: Satisfactory for swati luation. Endocervical and/or squamous metaplasticcells (endocervical component) are present. 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 Author Type: Nurse Practitioner Type: Progress Notes Filed: 10/16/2021 10:19 AM Note Text: Subjective HPI HPI Corinne Weeks is a 46 year old female who presents today for CC of fall this morning resulting in left foot pain and right leg pain. Symptoms are worsened by walking. Denies numbness/tingling of bilat lower extremities. Denies past injury/surgery to bilat lower extremity. Denies hx of diabetes. .Patient presents with: Pain (foot): left foot pain, fell down steps this am PAST MEDICAL HISTORY Diagnosis Date - Menorrhagia PAST SURGICAL HISTORY Procedure Laterality Date - COLONOSCOPY FLX DX W/COLLJ SPEC WHEN PFRMD 10/27/2014 Colonoscopy - PAST SURGICAL HISTORY OF upper teeth extraction - S CATH ABLATION THERMACHOICE 2011 menorrhagia ALLERGIES Patient has no known allergies. MEDICATIONS escitalopram oxalate (LEXAPRO) 10 mg tablet Take 1 tablet by mouth once daily. IBUPROFEN ORAL Take by mouth. FAMILY HISTORY Problem Relation Age of Onset - Hypertension Mother - Colon Cancer Mother - Diabetes Father - other (Skin Cancer Removal) Brother Regular Screenings - Heart Maternal Grandmother [place] - Multiple Sclerosis Daughter - Breast Cancer Paternal Aunt - Breast Cancer Paternal Aunt - Cancer Maternal Uncle Throat Cancer - Colon Cancer Maternal Aunt Social History Tobacco Use - Smoking status: Former Smoker Packs/day: 0.80 Years: 20.00 Pack years: 16.00 Types: Cigarettes - Smokeless tobacco: Never Used Substance Use Topics - Alcohol use: Yes Comment: Rarely - Drug use: No ROS Objective Blood pressure 118/70, pulse 88, temperature 36.5 ?C (97.7 ?F), resp. rate 16, weight 103 kg (227 lb), last menstrual period 09/11/2014, SpO2 98 %. Physical Exam Constitutional: General: She is not in acute distress. Appearance: She is not toxic-appearing or diaphoretic. HENT: Head: Normocephalic and atraumatic. Cardiovascular: Pulses: Dorsalis pedis pulses are 1+ on the right side and 1+ on the left side. Posterior tibial pulses are 1+ on the right side and 1+ on the left side. Pulmonary: Effort: Pulmonary effort is normal. No accessory muscle usage or respiratory distress. Musculoskeletal: Right knee: Normal. Right lower leg: Swelling, tenderness and bony tenderness present. No deformity or lacerations. Right ankle: Normal. Left ankle: Normal. Left Achilles Tendon: No tenderness. Legs: Neurological: Mental Status: She is alert and oriented to person, place, and time. ASSESSMENT/PLAN: 1. Foot injury, left, initial encounter - ICD9: 959.7, ICD10: S99.922A (primary diagnosis) As below - XR FOOT GENERAL 3V AP/LAT/OBL LEFT Impression: Transverse fracture of the proximal phalanx of the left second toe ? Dictated by : AUGIE RUDD MD - CEPHALEXIN 500 MG CAPSULE 2. Right leg injury, initial encounter - ICD9: 959.7, ICD10: S89.91XA xr negative - XR TIBIA FIBULA 2V AP/LAT RIGHT Impression: 1. No acute fracture or dislocation. ? ? Dictated by : AUGIE RUDD MD 3. Closed non-physeal fracture of proximal phalanx of lesser toe of left foot, initial encounter - ICD9: 826.0, ICD10: S92.512A Post op shoe provided, pain relief discussed F/u in 7-10 days for continued/changing/worsening s/s. Red flags discussed. Agrees to plan Karie Palacios APRN.[facility] Progress note 10-16-2021 Note Date & Type Note Facility 10-16-2021 Note HNO ID: [id number] Author: RT Jose(R) Service: Radiology Author Type: Technologist Type: Progress Notes Filed: 10/16/2021 9:37 AM Note Text: Radiology Service Progress Note PATIENT NAME: Corinne Weeks DATE OF SERVICE: October 16, 2021 TIME: 9:21 AM PATIENT IDENTITY VERIFICATION COMPLETED USING TWO (2) IDENTIFIERS: Name and Date of confirmed by patient verbally. FALL SCREENING: Has the patient had 2 falls in the last year or 1 fall with injury or currently using an Ambulatory Assistive Device (Walker, Cane, Wheelchair, Crutches, etc.)? No PATIENT GENDER DATA: Female. status: : No status: NO. PATIENT RELEVANT IMPLANT DATA REVIEWED: Yes RADIOLOGY DEPARTMENT: General X-ray: Exam(s) Completed: Lower Extremity X-Ray(s): Tibia Fibula, Right and Foot, Left and Wt. Bearing PERIPHERAL IV DATA: Not applicable SIGNED BY: RT Jose(R) October 16, 2021 9:21 AM [facility] History of Present illness Narrative 10-16-2021 Delores Levy RT(R) - 10/16/2021 9:20 AM EST Note Date & Type Note Facility 10-16-2021 History of Presen t illness Narrative Radiology Service Progress Note PATIENT NAME: Corinne Weeks DATE OF SERVICE: October 16, 2021 TIME: 9:21 AM PATIENT IDENTITY VERIFICATION COMPLETED USING TWO (2) IDENTIFIERS: Name and Date of confirmed by patient verbally. FALL SCREENING: Has the patient had 2 falls in the last year or 1 fall with injury or currently using an Ambulatory Assistive Device (Walker, Cane, Wheelchair, Crutches, etc.)? No PATIENT GENDER DATA: Female. status: : No status: NO. PATIENT RELEVANT IMPLANT DATA REVIEWED: Yes RADIOLOGY DEPARTMENT: General X-ray: Exam(s) Completed: Lower Extremity X-Ray(s): Tibia Fibula, Right and Foot, Left and Wt. Bearing PERIPHERAL IV DATA: Not applicable SIGNED BY: Delores Levy RT(R) October 16, 2021 9:21 AM documented in this encounter [facility] Evaluation note Note Date & Type Note Facility Evaluation note Diagnosis Onset Date Acute bronchitis, unspecified acute Encounter for screening for COVID-19 acute [facility] Work Phone: Evaluation note Note Date & Type Note Facility Evaluation note Diagnosis Onset Date Encounter for routine gyneco logical examination noneactive [facility] Work Phone: Evaluation note Note Date & Type Note Facility Evaluation note Diagnosis Onset Date Resolution Encounter for routine gynecological examination noneactive February 01, 2025 3:04pm [facility] Work Phone: Hospital Discharge instructions Note Date & Type Note Facility Hospital Discharge instructions Ambulatory OrdersGeneral Surgery Location: None Selected [facility] Work Phone: Reason for visit Narrative Diagnostic Procedure Only (Urgent) - Closed Note Date & Type Note Facility Reason for visit Narrative Specialty Diagnoses / Procedures Referred By Contac t Referred To Contact XR IMAGING Diagnoses Foot injury, left, initial encounter Procedures XR FOOT GENERAL 3V AP/LAT/OBL LEFT RADEX FOOT COMPLETE MINIMUM 3 VIEWS Karie Palacios APRN.OTR RE[employer]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 [address] [place] [address] [place] [address] Referral ID Status Reason Start Date Expiration Date V isits Requested Visits Authorized [id number] Closed Auto-Generate d Referral 10/16/2021 11/15/2022 1 1 [facility] Summary Purpose Family History No Family History Records Found Relationship Condition Age at Onset Recorded Date/T gavi mother Malignant neoplasm of colon Unknown Hypertension Unknown father Diabetes mellitus Unknown Advance Directives No Advanced Directives Records Found Advance Directive Response Recorded Date/ Time Living Will No July 09, 018 11:32am Power of Staff [employer] No July 09, 2018 11:32am Chief Complaint and Reason for Visit Chief Complaint CONGESTION/COVID BARBARA T LEFT FOOT XRAY - FRACTURE FOLLOW UP Reason for Visit Acute bronchitis, un specified Encounter for screening for COVID-19 Chief Complaint 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 Reason for Visit Encounter for routin e gynecological examination Chief Complaint Admit Date Annual (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 MANAGER) February 01, 2025 3:04p m Reason for Visit Admit Date Encounter for routine gynecological exam ination February 01, 2025 3:04pm Additional Source Comments INFORMATION SOURCE (unrecogn ized section and content) DATE CREATED AUTHOR 11/13/2021 [facility] DATE CREATED AUTHOR AUTHOR'S ORGANIZ ATION 02/10/2025 [facility] Goals (unrecognized section and content) Goals may be documented in a n alternate sectionGoals may be documented in an alternate sectionGoals may be documented in an alternate section Care Teams (unrecognized sec tion and content) Team Status: Active Member Role Status Dates Dr. Marilin Max MD Family Provider Active Dr. Marilin Max MD Primary Care Provider Active Team Status: Inactive Member Role Status Dates Dr. Marilin Max MD Primary Care Provider, Referrin g Provider Active Radha Coley CNM Attending Provider Active Team Status: Inactive Member Role Status Dates Dr. Marilin Mxa MD Primary Care Provider Active Radha Coley CNM Attending Provider, Referring Pr clarence Active Team Status: Inactive Member Role Status Dates Dr. 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 Marilin Max MD Primary Care Provider Active Start: February 01, 2025 End: February 01, 2025 Dr. Marilin Max MD Referring Provider Active Start: February 01, 2025 End: February 01, 2025 Radha Guillen NP, ASSOCIATE PROFESSOR OF COMMUNICATION-C Attending Provider Active Start: February 01, 2025 End: February 01, 2025 Source Comments (unrecognize d section and content) In the event this informatio n is protected by the Federal Confidentiality of Alcohol and Drug Abuse Patient Records regulations: The Federal rules restrict any use of the information to criminally investigate or prosecute any alcohol or drug abuse patient.[facility] FOR RECORDS PERTAINING TO PATIENTS WHO ARE OR HAVE BEEN ENROLLED IN A CHEMICAL DEPENDENCY/SUBSTANCEABUSE PROGRAM, SOME INFORMATION MAY BE OMITTED. This clinical summary was aggregated from multiple sources. Caution should be exercised in using it in the provision of clinical care. This summary normalizes information from multiple sources, and as a consequence, information in this document may materially change the coding, format and clinical context of patient data. In addition, data may be omitted in some cases. CLINICAL DECISIONS SHOULD BE BASED ON THE PRIMARY CLINICAL RECORDS. [employer] provides no warranty or guarantee of the accuracy or completeness of information in this document.
--- NOTE | 2025-02-12 07:15 | BI_ITS ---
EXAM: SCRN MAMM (CAD)W/CAROL BILAT 02/12/2025 CLINICAL HISTORY: F, Age 49 y/o , SCREENING FOR BREAST CANCER TECHNIQUE: Bilateral screening digital breast tomosynthesis with 2D and 3D images. Computer aided detection. COMPARISON: Prior exam(s) dated 01/23/2023, 06/15/2019. FINDINGS: TISSUE DENSITY: The breast tissue is extremely dense which lowers the sensitivity of mammography. The mammogram demonstrates that the patient has dense breasts. Supplemental screening with whole breast ultrasound or MRI may be considered for further evaluation. Bilateral Breast Mammographic Findings: There is an asymmetry in the inferior right breast at middle depth visualized on the MLO view. No significant masses, calcifications or other abnormalities are identified in the left breast. BI/SCRN MAMM (CAD)W/CAROL BILAT IMPRESSION: The asymmetry in the inferior right breast at middle depth requires further swati luation. Recommend diagnostic mammogram of the right breast and ultrasound on the day of diagnostic if indicated. Right Breast: BIRADS 0 Incomplete: Need additional imaging evaluation and/or pr ior mammograms for comparison.. Left Breast: BIRADS 1 NEGATIVE. OVERALL FINAL ASSESSMENT: BIRADS 0 Incomplete: Need additional imaging evaluati on and/or prior mammograms for comparison.. RECOMMENDATION: Additional projections. A letter with findings and recommendations will be mailed to the patient. Reading Location: [id number]
== END | disposition home or self-care (01) ==
LOC: OPBI 07:11
PROVIDERS: Referring Provider Nurse Practitioner Women's Health; Visit Provider Nurse Practitioner Women's Health
DX: Z12.31 Encounter for screening mammogram for malignant neoplasm of breast (principal)
CPT/HCPCS: 77063; 77067

== ENCOUNTER → 2025-02-12 | Outpatient (CLI) | payer BC, SELFPAY ==
--- OUTSIDE RECORDS SUMMARY | 2025-02-12 07:39 | XMS RPT_ITS | CCD ---
Author Organization [facility] [place] [facility] Care Team Providers Care Groover Runner Name Role Phone Dr. Marilin Max Primary Care Provider Dr. Marilin Max Referring Provider Bertha GRAMAJO, ROX Gilbert Attending Provider Dr. Marilin Max Primary Care Provider Dr. Marilin Max Referring Provider OSCAR Coley Attending Provider Marilin Max MD Primary Care Provider Dr. Marilin Max MD Primary Care Provider [phone] Winter UMANZOR, Dr. Gaston Referring Provider Radha [...] Drug IBUPROFEN ORAL Take by mouth. Active [place] (Nk) (1 source) Start: 01-22-2024 [place] (Nk) Active January 22, 2024 12:00am Completed/Discontinued [...] Test Name Value Interpretation Reference Range Facility Recycling Worker Office Visit Reporton 02-01-2025 Recycling Worker Office Visit Report [facility] [address], [address] [place] [address] OFFICE VISIT Date of Service: 02/01/25 MR#: [id number] Acct: [id number] Name: CORINNE WEEKS Rep #: [id number] : 1975 Provider: GINA anaya Age/Sex: 49/F [place] [facility] [place]: Signed Intake Vital Signs 01/22/24 15:22 02/01/25 15:10 02/01/25 15:19 Height 5 ft 8 in 5 ft 8 in 5 ft 8 in Weight: 242 lb BMI 36.8 BP 124/82 H Intake Visit Reasons: Annual (MEDICAL RECEPTIONIST) Chief Complaint: 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 Denies MEDICAL RECEPTIONIST concerns. No menses since ablation Last PAP: [...] oriented to person and oriented to place HENCA Head: normal to inspection Neck Neck: normal [...] 1 year, prn with problems Radha Guillen BROKE BEATER 02/01/25 1536 Date _ (more content not included)... Normal [facility] Cervical or vagninal specime n microscopic examination by cytology stain (reported asOrdered By: Radha Coley on 01-18-2023 Cytology report Cyto stain Doc (Cvx/Vag) Comment . [facility] Comment on above: The Pap [...] DNA Probe+sig amp Ql (Cvx) Negative Negative [facility] Comment on above: This nucleic acid am plification test detects fourteen high-risk HPV types (16,18,31,33,35,39,45,51,52,56,58,59,66,68)without differentiation. Laboratory - CytologyOrdered By: Radha Coley on 01-18-2023 Mechanical Systems Control Engineer Cyto stain Nom (Cvx/Vag) [ID] Comment . [facility] Comment on above: Conor Jacob totechnologist (ASCP) Laboratory - Miscellaneous t estsOrdered By: Radha Coley on 01-18-2023 Service comment (Unsp spec) [Interp] Comment . [facility] Comment on above: This liquid based Th inPrep(R) pap test was screened withthe use of an image guided system. Service comment (Unsp spec) [Interp] . . [facility] Liquid-based cerv Pap + CT/G C by SUNI w reflex to high-risk HPV for ASCUSOrdered By: Radha Coley on 01-18-2023 Cytology report Cyto stain.thin prep Doc (Cvx/Vag) Comment . [facility] Comment on above: Criteria not met, HP V Genotype not performed.Performed at: [facility] [address] [id number] [place], [place] [id number] Director: Santos Cole MD, Phone: [phone] at: - [facility] [id number] Director: Gale Moseley MD, Phone: [phone] at: =G - [facility] [id number] Director: Gale Moseley MD, Phone: [phone] No Panel InformationOrdered By: Radha Coley on 01-18-2023 Pathology report final diagnosis Narrative Comment . [facility] Comment on above: NEGATIVE FOR INTRAEP ITHELIAL LESION OR MALIGNANCY. CNOVon 10-16-2021 CNOV Office Visit (UCTR ) CORINNE WEEKS ([id number]) 1975 F Date Time Provider Department 10/16/21 8:45 AM KARIE PALACIOS [facility] During your visit today, we recorded the following information about you: Temperature Pulse Respiration Blood pressure 97.7 degrees 88/minute 16/minute 118/70 Weight 103 kg Karie Palacios APRN.BROKE BEATER 10/16/2021 10:19 AM Signed Subjective HPI HPI [...] Brother Regular Screenings - Heart Maternal Grandmother [place] - Multiple Sclerosis Daughter - Breast Cancer [...] flags discussed. Agrees to plan Karie Palacios APRN.BROKE BEATER Referring Provider: SELF [200] Allergies As of Date: 10/16/2021 (No Known Allergies) Date Reviewed: 10/16/2021 Reviewed by: Karie Palacios APRN.BROKE BEATER - Fully Assessed Reason for Visit: Pain (foot) [760] Cmt: left foot pain, fell down steps this am Primary Visit Diagnosis:Foot injury, left, initial encounter [S99.922A] Other Visit Diagnoses:Right leg injury, initial encounter [S89.91XA] Closed non-physeal fracture of proximal phalanx of lesser toe of left foot, initial encounter [S92.512A] Order(s):XR FOOT GENERAL 3V AP/LAT/OBL LEFT [[id number]] Order #: [id number]. #:[id number] XR TIBIA FIBULA 2V AP/LAT RIGHT [[id number]] Order #: [id number]. #:[id number] cephALEXin (KEFLEX) 500 mg capsuleTake 1 capsule [...] Abnormal uter (more content not included)... Normal [facility] No Panel InformationOrdered By: Ccf Provider on 10-16-2021 [facility] No Panel Informationon 10-16 Radiology Study observation (narrative) [facility] XR FOOT 3V AP/LAT/OBL LTon 0 10-16-2021 [...] proximal phalanx of the left second toe Weather Strip Mechanic[facility] Transcribe Date/Time: Oct 16 2021 9:46A Dictated by : AUGIE RUDD MD This examination was interpreted and the report reviewed and electronically signed by: AUGIE RUDD MD on Oct 16 2021 9:48AM EST [id number] Normal [facility] XR Foot - left AP and Latera [...] proximal phalanx of the left second toe Weather Strip Mechanic: [facility] Transcribe Date/Time: Oct 16 2021 9:46A Dictated by : AUGIE RUDD MD This examination was interpreted and the report reviewed and electronically signed by: AUGIE RUDD MD on Oct 16 2021 9:48AM [facility] DIVISION OF RADIOLOGY Provider, [facility] - 10/16/2021 * * *Final Report* [...] proximal phalanx of the left second toe Weather Strip Mechanic: [facility] Transcribe Date/Time: Oct 16 2021 9:46A Dictated by : AUGIE RUDD MD This examination was interpreted and the report reviewed and electronically signed by: AUGIE RUDD MD on Oct 16 2021 9:48AM [facility] XR TIBIA FIBULA 2V AP/LAT RT on [...] Impression: 1. No acute fracture or dislocation. Weather Strip Mechanic: [facility] Transcribe Date/Time: Oct 16 2021 9:49A Dictated by : AUGIE RUDD MD This examination was interpreted and the report reviewed and electronically signed by: AUGIE RUDD MD on Oct 16 2021 9:49AM EST [id number] Normal [facility] XR Tibia and Fibula - right AP [...] Impression: 1. No acute fracture or dislocation. Weather Strip Mechanic: KELIN Transcribe Date/Time: Oct 16 2021 9:49A Dictated by : AUGIE RUDD MD This examination was interpreted and the report reviewed and electronically signed by: AUGIE RUDD MD on Oct 16 2021 9:49AM EST DIVISION OF RADIOLOGY Provider, [facility] - 10/16/2021 * * *Final Report* [...] Impression: 1. No acute fracture or dislocation. Weather Strip Mechanic: [facility] Transcribe Date/Time: Oct 16 2021 9:49A Dictated by : AUGIE RUDD MD This examination was interpreted and the report reviewed and electronically signed by: AUGIE RUDD MD on Oct 16 2021 9:49AM EST [facility] No Panel Informationon 09-06 POC SARS CoV-2 Antigen Negative Wo [facility] Work Phone: Vital Signs Date Time Vital Sign Value Performing Clinician Faci lity 02-01-2025 15:19-0400 Body height 172.[address] Marilin Max MD Work Phone: [facility] 02-01-2025 15:10-0400 Body mass index (BMI) [Ratio] 36.8 kg/m2 Dr. Marilin Max MD Work Phone: [facility] 02-01-2025 15:10-0400 Body weight 109.[address] Marilin Max MD Work Phone: [facility] 02-01-2025 15:10-0400 Diastolic blood pressure 82 mm[Hg] Dr. Marilin Max MD Work Phone: [facility] 02-01-2025 15:10-0400 Systolic blood pressure 124 mm[Hg] Dr. Marilin Max MD Work Phone: [facility] 01-18-2023 15:28-0400 Body height 172.[address] Marilin Max Work Phone: [facility] 01-18-2023 15:09-0400 Body mass index (BMI) [Ratio] 34.9 kg/m2 Dr. Marilin Max Work Phone: [facility] 01-18-2023 15:09-0400 Body weight 104.[address] Marilin Max Work Phone: [facility] 01-18-2023 15:09-0400 Diastolic blood pressure 77 mm[Hg] Dr. Marilin Max Work Phone: [facility] 01-18-2023 15:09-0400 Systolic blood pressure 121 mm[Hg] Dr. Marilin Max Work Phone: [facility] 09-06-2021 09:45-0500 Body height 172.[address] Marilin Max Work Phone: [facility] Work Phone: 09-06-2021 09:45-0500 Body mass index (BMI) [Ratio] 34.3 kg/m2 Dr. Marilin Max Work Phone: [facility] Work Phone: 09-06-2021 09:45-0500 Body temperature 97.5 [degF] Dr. Marilin Max Work Phone: [facility] Work Phone: 09-06-2021 09:45-0500 Body weight 102.[address] Marilin Max Work Phone: [facility] Work Phone: 09-06-2021 09:45-0500 Diastolic blood pressure 62 mm[Hg] Dr. Marilin Max Work Phone: [facility] Work Phone: 09-06-2021 09:45-0500 Heart rate 93 /min Dr. Marilin Max Work Phone: [facility] Work Phone: 09-06-2021 09:45-0500 Respiratory rate 16 /min Dr. Marilin Max Work Phone: [facility] Work Phone: 09-06-2021 09:45-0500 SaO2% (BldA) [Mass fraction] 98 % Dr. Marilin Max Work Phone: [facility] Work Phone: 09-06-2021 09:45-0500 Systolic blood pressure 126 mm[Hg] Dr. Marilin Max Work Phone: [facility] Work Phone: Encounters Encounter Date Encounter Type Care Provider Facility Start: 03-17-2025 ambulatory Monet Robotham Facilit y:[facility] Start: 02-12-2025 ambulatory No Primary Car e Physician Facility:[facility] Start: 02-01-2025 End: 02-01-2025 Patient encounter procedure Radha Guillen DRAWING SUPERVISOR-C -[facility] Work Phone: Start: 02-01-2025 End: 02-01-2025 Patient encounter status Radha Guillen DRAWING SUPERVISOR-C [facility] Start: 02-01-2025 End: 02-01-[address] Marilin Max MD Work Phone: [facility] Work Phone: Start: 01-23-2023 End: 01-23-[address] Marilin Max Work Phone: [facility] Work Phone: Start: 01-23-2023 End: 01-23-[address] Marilin Max Work Phone: [facility]-Outpatient Breast Imaging Work Phone: Start: 01-18-2023 End: 01-18-[address] Marilin Max Work Phone: [facility]-Laboratory, Specimen Work Phone: Start: 01-18-2023 End: 01-18-[address] Marilin Max Work Phone: [facility] Work Phone: Start: 11-02-2021 End: 11-02-[address] Marilin Max Work Phone: [facility]-Radiology, [place] Start: 10-16-2021 End: 10-16-2021 Subsequent hospital visit by physician [facility] Work Phone: Radiology Comment on above: Foot injury, left, i nitial encounter [S99.922A] Start: 09-06-2021 End: 09-06-[address] Marilin Max Work Phone: [facility] Procedures Date Procedure Procedure Detail Performing Clinician Start: 01-23-2023 Screening mammography Dixie Max Work Phone: Start: 11-02-[address] Marilin Max Work Phone: Start: 10-16-2021 Radex foot complete minimum 3 views Karie Palacios APRN.CNP Work Phone: Start: 04-14-2016 Lipid 1996 panel - S mustapha or Plasma Xr [place] Work Phone: Start: 10-27-2014 Colonoscopy Xr Horacio Work Phone: Plan of Treatment Date Care Activity Detail Author Start: 02-01-2025 Patient referral [facility] Work Phone: Start: 04-26-2024 Covid-19 Vaccine ( season) Covid-19 Vaccine () [facility] Start: 04-26-2024 Influenza vaccination [facility] Vacc[facility] Start: 2023 Shingrix Vaccine (1 of 2) Shingrix Vaccine (1 of 2) [facility] Start: 11-19-2021 Screening for malignant neoplasm of cervix Cervical Cancer Screening [facility] Start: 04-14-2021 Lipid panel Lipid Screening [facility] Start: 04-14-2019 Diabetes Screening Diabetes Screening [facility] Start: 2018 Screening for malignant neoplasm of colon [facility] Start: 11-19-2017 Screening for malignant neoplasm of breast Mammogram Screening [facility] Start: 10-27-2017 Screening for malignant neoplasm of colon [facility] Start: 1992 Hepatitis B Vaccine (1 of 3 - 19+ 3-dose series) Hepatitis B Vaccine (1 of 3 - 19+ 3-dose series) [facility] Start: 1992 Urine microalbumin profile DTaP,Tdap,Td Vaccine (1 - Tdap) [facility] Start: 1991 Depression Screening Depression Screening [facility] Start: 1991 Hepatitis C screening Hepatitis C Screening [facility] Start: 1991 HIV screening HIV Screening [facility] Glucose [Mass/volume ] in Serum or Plasma [facility] Lipid 1996 panel - S mustapha or Plasma [facility] MG Breast - bilatera l Screening [facility] [place] [facility] [place] [facility] Work Phone: Thyroid stimulating hormone measurement [facility] Vitamin D, 25-hydrox y measurement [facility] Immunizations Immunization Date Immunization Notes Care Provider [facility] 05-22-2016 influenza virus vaccine, unspecified formulation Xr [place] Work Phone: [facility] 05-24-2009 influenza virus vaccine, unspecified formulation [facility]r [place] Work Phone: [facility] Work Phone: Payers Date Payer Category Payer Self-pay [id number] 2025 Unknown [id number] 2020 Unknown [employer] BLUE CARD PPO OOS [id number] 2020-Present [phone] [address] [place] [address] PPO [id number] Private Health Insurance [facility] [id number] Unknown [id number] Unknown [id number] Unknown [id number] Unknown [id number] Social History Date Type Detail Facility Start: 09-06-2021 End: 01-18-2023 Tobacco smoking status NHIS Unknown if ever smoked [facility] Start: 07-09-2018 Cigarettes [facility] Start: 1975 Sex Assigned At Female W [facility] Start: 11-02-2015 End: 01-18-2023 Tobacco smoking status NHIS Ex-smoker [facility] History of tobacco use Current smoker [facility] History of tobacco use Cigarette Smoker [facility] Start: 11-02-2015 End: 10-16-2021 Cigarettes smoked current (pack per day) - Reported 0.8 [facility] Start: 11-02-2015 Tobacco use and exposure Smokeless tobacco non-user [facility] Start: 10-16-2021 Alcoholic beverage intake Current drinker of alcohol (finding) [facility] Start: 10-16-2021 Tobacco use panel [facility] Start: 11-19-2016 Alcohol Comment Rarely [facility] Start: 1975 Sex assigned at Not on file C [facility] Start: 09-16-2021 End: 10-16-2021 Exposure to SARS-CoV-2 (event) Not sure [facility] Clinical Note 01-18-2023 Note Date & Type Note Facility 01-18-2023 Note [facility] Pap Smear Specimen Adequacy January 18, 2023 5:05pm Comment . Satisfactory for evaluation. Endocervical and/or squamous metaplasticcells (endocervical component) are present. Comment on above: Satisfactory for swati luation. Endocervical and/or squamous metaplasticcells (endocervical component) are present. Progress note 10-16-2021 Note Date & Type Note Facility 10-16-2021 Note HNO ID: [id number] Author: Karie Palacios APRN.BROKE BEATER Service: ? Author Type: Nurse Practitioner Type: [...] Brother Regular Screenings - Heart Maternal Grandmother [place] - Multiple Sclerosis Daughter - Breast Cancer [...] flags discussed. Agrees to plan Karie Palacios APRN.[facility] Progress note 10-16-2021 Note Date & Type Note Facility 10-16-2021 Note HNO ID: [id number] Author: RT Jose(R) Service: Radiology Author Type: [...] RT Jose(R) October 16, 2021 9:21 AM [facility] History of Present illness Narrative 10-16-2021 Delores [...] 2021 9:21 AM documented in this encounter [facility] Evaluation note Note Date & Type Note Facility Evaluation note Diagnosis Onset Date Acute bronchitis, unspecified acute Encounter for screening for COVID-19 acute [facility] Work Phone: Evaluation note Note Date & Type Note Facility Evaluation note Diagnosis Onset Date Encounter for routine gyneco logical examination noneactive [facility] Work Phone: Evaluation note Note Date & Type Note Facility Evaluation note Diagnosis Onset Date Resolution Encounter for routine gynecological examination noneactive February 01, 2025 3:04pm [facility] Work Phone: Hospital Discharge instructions Note Date & Type Note Facility Hospital Discharge instructions Ambulatory OrdersGeneral Surgery Location: None Selected [facility] Work Phone: Reason for visit Narrative Diagnostic Procedure Only (Urgent) - Closed Note Date & Type Note Facility Reason for visit Narrative Specialty Diagnoses / Procedures Referred By Contac t Referred To Contact XR IMAGING Diagnoses Foot injury, left, initial encounter Procedures XR FOOT GENERAL 3V AP/LAT/OBL LEFT RADEX FOOT COMPLETE MINIMUM 3 VIEWS Karie Palacios APRN.BROKE BEATER [address] [place] [address] [place] [address] Referral ID Status Reason Start Date Expiration Date V isits Requested Visits Authorized [id number] Closed Auto-Generate d Referral 10/16/2021 11/15/2022 1 1 [facility] Summary Purpose Family History No Family History Records Found Relationship Condition Age at Onset Recorded Date/T gavi mother Malignant neoplasm of colon Unknown Hypertension Unknown father Diabetes mellitus Unknown Advance Directives No Advanced Directives Records Found Advance Directive Response Recorded Date/ Time Living Will No July 09, 018 11:32am Power of Specialty Trimmer No July 09, 2018 11:32am Chief Complaint and Reason for Visit Chief Complaint CONGESTION/COVID BARBARA T LEFT FOOT XRAY - FRACTURE FOLLOW UP Reason for Visit Acute bronchitis, un specified Encounter for screening for COVID-19 Chief Complaint Annual (MEDICAL RECEPTIONIST) SCREENING Reason for Visit Encounter for routin e gynecological examination Chief Complaint Admit Date Annual (MEDICAL RECEPTIONIST) February 01, 2025 3:04p m Reason for Visit Admit Date Encounter for routine gynecological exam ination February 01, 2025 3:04pm Additional Source Comments INFORMATION SOURCE (unrecogn ized section and content) DATE CREATED AUTHOR 11/13/2021 [facility] DATE CREATED AUTHOR AUTHOR'S ORGANIZ ATION 02/10/2025 [facility] Goals (unrecognized section and content) Goals may [...] Marilin Max MD Primary Care Provider Active Radha Coley CNM Attending Provider, Referring Pr clarence Active Team Status: Inactive Member Role Status Dates Dr. aMrilin Max MD Primary Care Provider Active Radha Coley CNM Attending Provider Active Groover Runner Relationship Specialty Start Date End Date Marilin Max MD [address] [place] [address] PCP - General Family Medicine 03/29/20 Team Status: Inactive Member Role Status Dates Dr. Marilin Max MD Primary Care Provider Active Start: February 01, 2025 End: February 01, 2025 Dr. Marilin Max MD Referring Provider Active Start: February 01, 2025 End: February 01, 2025 Radha Guillen NP, DRAWING SUPERVISOR-C Attending Provider Active Start: February 01, 2025 End: February 01, 2025 Source Comments (unrecognize d section and content) In the event this informatio n is protected by the Federal Confidentiality of Alcohol and Drug Abuse Patient Records regulations: The Federal rules restrict any use of the information to criminally investigate or prosecute any alcohol or drug abuse patient.[facility] FOR RECORDS PERTAINING TO PATIENTS WHO ARE [...] BE BASED ON THE PRIMARY CLINICAL RECORDS. [employer] provides no warranty or guarantee of the accuracy or completeness of information in this document.
[2025-02-12 09:13] LABS: Glucose 81 mg/dL (70-99)
[2025-02-12 09:40] LABS: Cholesterol 132 mg/dL (<=200); High Density Lipoprotein 48 mg/dL; Low Density Lipoprotein Calc. 64 mg/dL; Triglycerides 98 mg/dL; Very Low Density Lipoprotein 20 mg/dL (5-40); cholesterol:hdl ratio screen 2.76
== END | disposition home or self-care (01) ==
PROVIDERS: Referring Provider Nurse Practitioner Women's Health; Visit Provider Nurse Practitioner Women's Health
DX: E55.9 Vitamin D deficiency, unspecified (principal); Z13.220 Encounter for screening for lipoid disorders; Z13.1 Encounter for screening for diabetes mellitus; Z13.29 Encounter for screening for other suspected endocrine disorder
CPT/HCPCS: 36415; 80061; 82306; 82947; 84443

== ENCOUNTER → 2025-02-17 | Outpatient (CLI) | payer BC, SELFPAY ==
--- NOTE | 2025-02-17 12:54 | US_ITS ---
PROCEDURE: DIAG MAMM W/CAD, UNILAT; BREAST LIMITED UNILATERAL REASON FOR EXAM: 49-year-old female presents for follow-up of the right breast finding seen on examination of 02/12/2025. Family history of breast cancer in 2 paternal aunts. TECHNIQUE: Right diagnostic digital breast tomosynthesis with 2D and 3D images. Computer aided detection. Also, targeted right breast ultrasound was performed. COMPARISON: Prior exam(s) dated 02/12/2025, 01/23/2023, 06/15/2019. FINDINGS: MAMMOGRAM: The breasts are heterogeneously dense which may obscure small masses. The mammogram demonstrates that the patient has dense breasts. Supplemental screening with whole breast ultrasound or MRI may be considered for further evaluation. Follow-up examination performed for the asymmetry in the inferior right breast seen on examination of 02/12/2025. On the present examination, the asymmetry in the inferior right breast at middle depth does not persist. Also, there is a stable mass in the upper inner right breast at posterior depth which appears stable dating back on multiple priors to 2019. ULTRASOUND: Ultrasound was targeted to the right breast inferior and upper inner breast. Ultrasound performed of the inferior right breast demonstrates no sonographic correlate for the mammographic finding. However, there is an incidentally noted hypoechoic area at 9 o'clock 5 cm from the nipple measuring 0.7 x 0.4 x 0.3 cm, this may represent entrapped fat. Also, at 1 o'clock 5 cm from the nipple there is an oval circumscribed mass measuring 2.1 x 1.8 x 0.9 cm, this may represents a fibroadenoma and correlates to the stable mass seen on prior mammograms dating back to 2019. US/Breast Limited Unilateral IMPRESSION: 1. 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 2. There is no evidence of malignancy in the right breast. BI-RADS 2: BENIGN. RECOMMEND ANNUAL MAMMOGRAPHIC SCREENING. Follow-up code: Routine Follow-up Reading Location: [id number]
== END | disposition home or self-care (01) ==
PROVIDERS: Referring Provider Nurse Practitioner Women's Health; Visit Provider Nurse Practitioner Women's Health
DX: R92.8 Other abnormal and inconclusive findings on diagnostic imaging of breast (principal); N64.89 Other specified disorders of breast; Z80.3 Family history of malignant neoplasm of breast
CPT/HCPCS: 76642; 77061; 77065; G0279

== ENCOUNTER 2025-03-17 06:31 | Day surgery (SDC) | payer BC, SELFPAY ==
[2025-03-17] VITALS (8 sets, daily range): BP systolic 95–122; BP diastolic 63–77; PULSE 61–69; RESP 16; TEMP 36–36.6; O2SAT 98–99; BMI 35.9
--- OUTSIDE RECORDS SUMMARY | 2025-03-17 06:34 | XMS RPT_ITS | CCD ---
Author Organization [facility] Care Team Providers Care Sql Architect Name Role Phone Dr. Marilin Max Primary Care Provider Dr. Marilin Max Referring Provider [phone] Bertha GRAMAJO, ROX Gilbert Attending Provider Dr. Marilin Max Primary Care Provider Dr. Marilin Max Referring Provider OSCAR Coley Attending Provider Marilin Max MD Primary Care Provider Dr. Marilin Max MD Primary Care Provider Dr. Marilin Max MD Referring Provider Mutual HUMAN SERVICES INSTRUCTOR-C, Radha Attending Provider Mutual HUMAN SERVICES INSTRUCTOR-C, Radha Referring Provider Care Physician, No Primary Primary Care Provider Unavailable Mindy HUMAN SERVICES INSTRUCTOR, Radha Attending Unavailable Mutual HUMAN SERVICES INSTRUCTOR, Radha Referring Unavailable Care Physician, No Primary Primary Care Unava ilable Mutual HUMAN SERVICES INSTRUCTOR, Radha Attending Unavailable Mindy HUMAN SERVICES INSTRUCTOR, Radha Referring Unavailable Care Physician, No Primary Primary Care Unava ilable Care Physician, No Primary Referring Unava ilable Monet Brewster Attending Unavailable Care Physician, No Primary Primary Care Unava ilable Mindy HUMAN SERVICES INSTRUCTOR, Radha Attending Unavailable Marilin Max Primary Care Unavailable Marilin Max Referring Unavailable Care Physician, No Primary Primary Care Unava ilable Mutual HUMAN SERVICES INSTRUCTOR, Radha Attending Unavailable Mutual HUMAN SERVICES INSTRUCTOR, Radha Referring Unavailable Medications Current Medications Medication Drug [...] Drug IBUPROFEN ORAL Take by mouth. Active Maguayo (Nk) (4 sources) Start: 01-22-2024 Maguayo (Nk) Active January 22, 2024 12:00am Completed/Discontinued Medications Medication Drug Class(es) Dates Sig (Normalized) Sig (Original) benzonatate 200 mg oral capsule (6 sources) Non-narcotic Antitussive Start: 09-06-2021 End: 01-18-2023 take 1 capsule by mouth three times daily as needed for cough Benzonatate 200 mg capsule Discontinued 200 mg PO THREE TIMES A DAY as needed for cough 30 0 September 06, 2021 1:00am January 18, 2023 [...] unspecified; Translations: [Vitamin D deficiency, unspecified] Onset: 02-18-2025 Chronic Other screening for suspected conditions (not mental disorders or infectious disease) (7 sources) Other abnormal and inconclusive findings on diagnostic imaging of breast; Translations: [Encounter for screening mammogram for malignant neoplasm of breast] Onset: 02-01-2025 Episodic Unclassified (10 sources) Encounter for screening for malignant neoplasm [...] Test Name Value Interpretation Reference Range Facility Breast Limited Unilateralon 02-17-2025 Breast Limited Unilateral [facility] Imaging Services [address], [place] [address] Breast Limited Unilateral MR#: [id number] Acct: [id number] Name: CORINNE WEEKS Rep #: [id number] : 1975 F 49 From: Ariana Contreras MD PCP: Care Physician,No Primary Status: REG CLI Study: Breast Limited Unilateral Date of Exam: Exam# [id number] Ordering Dr: Radha Guillen HUMAN SERVICES INSTRUCTOR HUMAN SERVICES INSTRUCTOR -C PROCEDURE: DIAG MAMM W/CAD, UNILAT; BREAST LIMITED UNILATERAL REASON FOR EXAM: 49-year-old female presents for follow-up of the right breast finding seen on examination of 02/12/2025. Family history of breast cancer in 2 paternal aunts. TECHNIQUE: Right diagnostic digital breast tomosynthesis with 2D and 3D images. Computer aided detection. Also, targeted right breast ultrasound was performed. COMPARISON: Prior exam(s) dated 02/12/2025, 01/23/2023, 06/15/2019. FINDINGS: MAMMOGRAM: The breasts are heterogeneously dense which may obscure small masses. The mammogram demonstrates that the patient has dense breasts. Supplemental screening with whole breast ultrasound or MRI may be considered for further evaluation. Follow-up examination performed for the asymmetry in the inferior right breast seen on examination of 02/12/2025. On the present examination, the asymmetry in the inferior right breast at middle depth does not persist. Also, there is a stable mass in the upper inner right breast at posterior depth which appears stable dating back on multiple priors to 2019. ULTRASOUND: Ultrasound was targeted to the right breast inferior and upper inner breast. Ultrasound performed of the inferior right breast demonstrates no sonographic correlate for the mammographic finding. However, there is an incidentally noted hypoechoic area at 9 o'clock 5 cm from the nipple measuring 0.7 x 0.4 x 0.3 cm, this may represent entrapped fat. Also, at 1 o'clock 5 cm from the nipple there is an oval circumscribed mass measuring 2.1 x 1.8 x 0.9 cm, this may represents a fibroadenoma and correlates to the stable mass seen on prior mammograms dating back to 2019. US/Breast Limited Unilateral IMPRESSION: 1. Stable benign right breast mass at 1 o'clock likely represents a fibroadenoma and has been mammographically stable dating back to 2019. 2. There is no evidence of malignancy in the right breast. BI-RADS 2: BENIGN. RECOMMEND ANNUAL MAMMOGRAPHIC SCREENING. Follow-up code: Routine Follow-up Reading Location: [facility] CC: HUMAN SERVICES INSTRUCTOR-Viridiana Guillen; No Primary Care Physician Platen Press Feeder: Signed Normal [facility] Breast imaging reportOrdered By: Ariana Contreras on 02-17-2025 Study report [facility] Imaging Services [address] [place] [address] DIAG MAMM W/CAD, UNILAT MR#: [id number] Acct: [id number] Name: CORINNE WEEKS Rep #: [id number] : 1975 F 49 From: Stephany Contreras MD PCP: Care Physician,No Primary Status: REG CLI Study:DIAG MAMM W/CAD, UNILAT Date of Exam: 02/17/25 Exam# [id number] Ordering Dr: Radha Guillen NP HUMAN SERVICES INSTRUCTOR-C PROCEDURE: DIAG MAMM W/CAD, UNILAT; BREAST LIMITED UNILATERAL REASON FOR EXAM: 49-year-old female presents for follow-up of the right breast finding seen on examination of 02/12/2025. Family history of breast cancer in 2 paternal aunts. TECHNIQUE: Right diagnostic digital breast tomosynthesis with 2D and 3D images. Computer aided detection. Also, targeted right breast ultrasound was performed. COMPARISON: Prior exam(s) dated 02/12/2025, 01/23/2023, 06/15/2019. FINDINGS: MAMMOGRAM: The breasts are heterogeneously dense which may obscure small masses. The mammogram demonstrates that the patient has dense breasts. Supplemental screening with whole breast ultrasound or MRI may be considered for further evaluation. Follow-up examination performed for the asymmetry in the inferior right breast seen on examination of 02/12/2025. On the present examination, the asymmetry in the inferior right breast at middle depth does notpersist. Also, there is a stable mass in the upper inner right breast at posterior depth which appears stable dating back on multiple priors to 2018. ULTRASOUND: Ultrasound was targeted to the right breast inferior and upper inner breast. Ultrasound performed of the inferior right breast demonstrates no sonographic correlate for the mammographic finding. However, there is an incidentally noted hypoechoic area at 9 o'clock 5 cm from the nipplemeasuring 0.7 x 0.4 x 0.3 cm, this may represent entrapped fat. Also, at 1 o'clock 5 cm from the nipple there is an oval circumscribed mass measuring 2.1 x 1.8 x 0.9 cm, this may represents a fibroadenoma and correlates to the stable mass seen on prior mammograms dating back to 2019. BI/DIAG MAMM W/CAD, UNILAT IMPRESSION: 1. Stable benign right breast mass at 1 o'clock likely represents a fibroadenomaand has been mammographically stable dating back to 2019. 2. There is no evidence of malignancy in the right breast. BI-RADS 2: BENIGN. RECOMMEND ANNUAL MAMMOGRAPHIC SCREENING. Follow-up code: Routine Follow-up Reading Location: [id number] CC: GINA Guillen; No Primary Care Physician ~ Platen Press Feeder: Signed [facility] DIAG MAMM W/CAD, UNILATon DIAG MAMM W/CAD, UNILAT [facility] Imaging Services [address], [place] [address] DIAG MAMM W/CAD, UNILAT MR#: [id number] Acct: [id number] Name: CORINNE WEEKS Rep #: [id number] : 1975 F 49 From: Ariana Contreras MD PCP: Care Physician,No Primary Status: DEP CLI Study: DIAG MAMM W/CAD, UNILAT Date of Exam: 02/17/25 Exam# [id number] Ordering Dr: Radha Guillen HUMAN SERVICES INSTRUCTOR HUMAN SERVICES INSTRUCTOR -C PROCEDURE: DIAG MAMM W/CAD, UNILAT; BREAST LIMITED UNILATERAL REASON FOR EXAM: 49-year-old female presents for follow-up of the right breast finding seen on examination of 02/12/2025. Family history of breast cancer in 2 paternal aunts. TECHNIQUE: Right diagnostic digital breast tomosynthesis with 2D and 3D images. Computer aided detection. Also, targeted right breast ultrasound was performed. COMPARISON: Prior exam(s) dated 02/12/2025, 01/23/2023, 06/15/2019. FINDINGS: MAMMOGRAM: The breasts are heterogeneously dense which may obscure small masses. The mammogram demonstrates that the patient has dense breasts. Supplemental screening with whole breast ultrasound or MRI may be considered for further evaluation. Follow-up examination performed for the asymmetry in the inferior right breast seen on examination of 02/12/2025. On the present examination, the asymmetry in the inferior right breast at middle depth does not persist. Also, there is a stable mass in the upper inner right breast at posterior depth which appears stable dating back on multiple priors to 2019. ULTRASOUND: Ultrasound was targeted to the right breast inferior and upper inner breast. Ultrasound performed of the inferior right breast demonstrates no sonographic correlate for the mammographic finding. However, there is an incidentally noted hypoechoic area at 9 o'clock 5 cm from the nipple measuring 0.7 x 0.4 x 0.3 cm, this may represent entrapped fat. Also, at 1 o'clock 5 cm from the nipple there is an oval circumscribed mass measuring 2.1 x 1.8 x 0.9 cm, this may represents a fibroadenoma and correlates to the stable mass seen on prior mammograms dating back to 2019. BI/DIAG MAMM W/CAD, UNILAT IMPRESSION: 1. Stable benign right breast mass at 1 o'clock likely represents a fibroadenoma and has been mammographically stable dating back to 2019. 2. There is no evidence of malignancy in the right breast. BI-RADS 2: BENIGN. RECOMMEND ANNUAL MAMMOGRAPHIC SCREENING. Follow-up code: Routine Follow-up Reading Location: [facility] CC: HUMAN SERVICES INSTRUCTOR-C Radha Guillen; No Primary Care Physician Platen Press Feeder: Signed Normal [facility] Breast imaging reportOrdered By: Ariana Contreras on 02-12-2025 Study report [facility] Imaging Services [address] [place] [address] SCRN MAMM (CAD)W/CAROL BILAT MR#: [id number] Acct: [id number] Name: CORINNE WEEKS Rep #: [id number] : 1975 F 49 From: Stephany Contreras MD PCP: Care Physician,No Primary Status: REG CLI Study:SCRN MAMM (CAD)W/CAROL BILAT Date of Exa m: 02/12/25 Exam# [id number] Ordering Dr: Radha Guillen NP HUMAN SERVICES INSTRUCTOR-C EXAM: SCRN MAMM (CAD)W/CAROL BILAT 02/12/2025 CLINICAL HISTORY: F, Age 49 y/o , SCREENING FOR BREAST CANCER TECHNIQUE: Bilateral screening digital breast tomosynthesis with 2D and 3D images. Computeraided detection. COMPARISON: Prior exam(s) dated 01/23/2023, 06/15/2019. FINDINGS: TISSUE DENSITY: The breast tissue is extremely dense which lowers the sensitivity of mammography. The mammogram demonstrates that the patient has dense breasts. Supplemental screening with whole breast ultrasound or MRI may be considered for further evaluation. Bilateral Breast Mammographic Findings: There is an asymmetry in the inferior right breast at middle depth visualized onthe MLO view. No significant masses, calcifications or other abnormalities are identified in the left breast. BI/SCRN MAMM (CAD)W/CAROL BILAT IMPRESSION: The asymmetry in the inferior right breast at middle depth requires further evaluation. Recommend diagnostic mammogram of the right breast and ultrasound on the day of diagnostic if indicated. Right Breast: BIRADS 0 Incomplete: Need additional imaging evaluation and/or prior mammograms for comparison.. Left Breast: BIRADS 1 NEGATIVE. OVERALL FINAL ASSESSMENT: BIRADS 0 Incomplete: Need additional imaging evaluation and/or prior mammograms for comparison.. RECOMMENDATION: Additional projections. A letter with findings and recommendations will be mailed to the patient. Reading Location: [id number] CC: GINA Guillen; No Primary Care Physician ~ Platen Press Feeder: Signed [facility] Calculated very low density lipoprotein (VLDL) cholesterol measurementOrdered By: Radha Guillen on 02-12-2025 Calculated very low density lipoprotein (VLDL) cholesterol measurement 20 mg/dL 5-40 [facility] Glucoseon 02-12-2025 Glucose [Mass/Vol] 81 mg/dL Normal 70-99 [facility] Comment on above: Performed By: #### L 501.0100, L501.9520, L506.1001, L500.4100 #### [facility] [address] [facility]. [place], [place], [address] LDL calc ser/plasOrdered By: Radha Guillen on 02-12-2025 Cholesterol in LDL [Mass/Vol] 64 mg/dL [facility] Comment on above: Impyvszxct=428-936 m g/dL & Higher Ijzp=236 mg/dL or greater Lipid Profileon 02-12-2025 CHOL:HDL 2.76 Normal [facility] Comment on above: Performed By: #### L 501.0100, L501.9520, L506.1001, L500.4100 #### [facility] [address] [place], [place], [address] Cholesterol [Mass/Vol] 132 mg/dL Normal <=200 [facility] Comment on above: Result Comment: Chol esterol level, Desirable <200 mg/dL Borderline high cholesterol 200-239 mg/dL High cholesterol >=240 mg/dL Recommendations of the NCEP Adult Treatment Panel for the following risk-cutoff thresholds for the [place] population. Performed By: #### L 501.0100, L501.9520, L506.1001, L500.4100 #### [facility] [address] [place], [address] Cholesterol in HDL [Mass/Vol] 48 mg/dL Normal [facility] Comment on above: Result Comment: Ana Maria onal Cholesterol Education Program (NCEP) guidelines: <40 mg/dL: Low HDL-cholesterol (major risk factor for CHD) >= 60 mg/dL: High HDL-cholesterol (negative risk factor for CHD) HDL-cholesterol is affected by a number of factors, e.g. smoking, exercise, hormones, sex and age. Performed By: #### L 501.0100, L501.9520, L506.1001, L500.4100 #### [facility] [address] [place], [address] Cholesterol in LDL [Mass/Vol] 64 mg/dL Normal [facility] Comment on above: Result Comment: Bord qyrjnz=746-517 mg/dL Higher Kgfv=363 mg/dL or greater Performed By: #### L 501.0100, L501.9520, L506.1001, L500.4100 #### [facility] [address] [place], [address] Cholesterol in VLDL [Mass/Vol] 20 mg/dL Normal 5-40 [facility] Comment on above: Performed By: #### L 501.0100, L501.9520, L506.1001, L500.4100 #### [facility] [address] [place], [address] Triglyceride [Mass/Vol] 98 mg/dL Normal [facility] Comment on above: Result Comment: The drugs N-Acetylcysteine and Metamizole may falsely depress this assay. Normal range: <150 mg/dL Borderline High: 150-199 mg/dL High: 200-499 mg/dL Very High: >500 mg/dL Performed By: #### L 501.0100, L501.9520, L506.1001, L500.4100 #### [facility] [address] [place], [address] SCRN MAMM (CAD)W/CAROL BILATo n 02-12-2025 SCRN MAMM (CAD)W/CAROL BILAT [facility] Imaging Services [address] [facility] [place] [address] SCRN MAMM (CAD)W/CAROL BILAT MR#: [id number] Acct: [id number] Name: CORINNE WEEKS Rep #: [id number] : 1975 F 49 From: Ariana Contreras MD PCP: Care Physician,No Primary Status: REG CLI Study: SCRN MAMM (CAD)W/CAROL BILAT Date of Exam: 01/25 Exam# [id number] Ordering Dr: Radha Guillen HUMAN SERVICES INSTRUCTOR HUMAN SERVICES INSTRUCTOR -C EXAM: SCRN MAMM (CAD)W/CAROL BILAT 02/12/2025 CLINICAL HISTORY: F, Age 49 y/o , SCREENING FOR BREAST CANCER TECHNIQUE: Bilateral screening digital breast tomosynthesis with 2D and 3D images. Computer aided detection. COMPARISON: Prior exam(s) dated 01/23/2023, 06/15/2019. FINDINGS: TISSUE DENSITY: The breast tissue is extremely dense which lowers the sensitivity of mammography. The mammogram demonstrates that the patient has dense breasts. Supplemental screening with whole breast ultrasound or MRI may be considered for further evaluation. Bilateral Breast Mammographic Findings: There is an asymmetry in the inferior right breast at middle depth visualized on the MLO view. No significant masses, calcifications or other abnormalities are identified in the left breast. BI/SCRN MAMM (CAD)W/CAROL BILAT IMPRESSION: The asymmetry in the inferior right breast at middle depth requires further evaluation. Recommend diagnostic mammogram of the right breast and ultrasound on the day of diagnostic if indicated. Right Breast: BIRADS 0 Incomplete: Need additional imaging evaluation and/or prior mammograms for comparison.. Left Breast: BIRADS 1 NEGATIVE. OVERALL FINAL ASSESSMENT: BIRADS 0 Incomplete: Need additional imaging evaluation and/or prior mammograms for comparison.. RECOMMENDATION: Additional projections. A letter with findings and recommendations will be mailed to the patient. Reading Location: [facility] CC: HUMAN SERVICES INSTRUCTOR-C Radha Guillen; No Primary Care Physician Platen Press Feeder: Signed Normal [facility] Screening total cholesterol/ high density lipoprotein (HDL) cholesterol ratioOrdered By: Radha Guillen on 02-12-2025 Cholesterol.total/Malka sterol in HDL [Mass ratio] 2.76 {ratio} [facility] Serum glucose measurement (m ass/volume)Ordered By: Radha Guillen on 02-12-2025 Glucose [Mass/Vol] 81 mg/dL 70-99 [facility] Serum or plasma cholesterol in HDL measurement (mass/volume)Ordered By: Radha Guillen on 02-12-2025 Cholesterol in HDL [Mass/Vol] 48 mg/dL >40 [facility] Comment on above: National Cholesterol Education Program (NCEP) guidelines:<40 mg/dL: Low HDL-cholesterol (major risk factor for CHD)>= 60 mg/dL: High HDL-cholesterol (negative risk factor for CHD)HDL-cholesterol is affected by a number of factors, e.g. smoking, exercise, hormones, sex and age. Serum or plasma cholesterol measurement (mass/volume)Ordered By: Radha Guillen on 02-12-2025 Cholesterol [Mass/Vol] 132 mg/dL <201 [facility] Comment on above: Cholesterol level, D esirable <200 mg/dLBorderline high cholesterol 200-239 mg/dLHigh cholesterol >=240 mg/dLRecommendations of the NCEP Adult Treatment Panel for the following risk-cutoff thresholds for the [place] population. TSH DL <= 0.005 mIU/L QnOrde red By: Radha Guillen on 02-12-2025 TSH Qn 3.820 uIU/mL 0.300-4.200 [facility] Thyroid Stim Hormone (TSH)on 02-12-2025 TSH 3.820 uIU/mL Normal 0.300-4.200 [facility] Comment on above: Performed By: #### L 501.0100, L501.9520, L506.1001, L500.4100 #### [facility] [address] [place], [address] Triglycerides measurementOrd ered By: Radha Guillen on 02-12-2025 Triglyceride [Mass/Vol] 98 mg/dL <199 [facility] Comment on above: The drugs N-Acetylcy steine and Metamizole may falsely depress this assay. Normal range: <150 mg/dLBorderline High: 150-199 mg/dLHigh: 200-499 mg/dLVery High: >500 mg/dL Vitamin D,25 Hydroxyon 02-12 Vitamin D 25-OH 31.0 ng/mL Normal 30-100 [facility] Comment on above: Result Comment: Tomasa min D Status Deficiency: <20 ng/mL (50nmol/L) Insufficiency: 20-30 ng/mL (50-75 nmol/L) Sufficiency: 30-100 ng/mL (75-250 nmol/L) Toxicity: >100 ng/mL (>250 nmol/L) Performed By: #### L 501.0100, L501.9520, L506.1001, L500.4100 #### [facility] [address] 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 Denies CALL CENTER TRAINER concerns. No menses since ablation Last PAP: [...] oriented to person and oriented to place [facility] Head: normal to inspection Neck Neck: normal [...] 1 year, prn with problems Radha Guillen [facility] 02/01/25 1536 Date _ (more content not included)... Normal [facility] Cervical or vagninal specime n microscopic examination by cytology stain (reported asOrdered By: Radha Coley on 01-18-2023 Cytology report Cyto stain Doc (Cvx/Vag) Comment . [facility] Comment on above: The Pap smear is [...] DNA Probe+sig amp Ql (Cvx) Negative Negative [facility] Comment on above: This nucleic acid am plification test detects fourteen high-risk HPV types (16,18,31,33,35,39,45,51,52,56,58,59,66,68)without differentiation. Laboratory - CytologyOrdered By: Radha Coley on 01-18-2023 Hand Ii Blocker Cyto stain Nom (Cvx/Vag) [ID] Comment . [facility] Comment on above: Conor Jacob totechnologist (ASCP) Laboratory - Miscellaneous t estsOrdered By: Radha Coley on 01-18-2023 Service comment (Unsp spec) [Interp] Comment . [facility] Comment on above: This liquid based Th inPrep(R) pap test was screened withthe use of an image guided system. Service comment (Unsp spec) [Interp] . . [facility] Liquid-based cerv Pap + CT/G C by SUNI w reflex to high-risk HPV for ASCUSOrdered By: Radha Coley on 01-18-2023 Cytology report Cyto stain.thin prep Doc (Cvx/Vag) Comment . [facility] Comment on above: Criteria not met, HP V Genotype not performed.Performed at: [facility] Cyto [id number] [place], [place] [id number] Director: Santos Cole MD, Phone: [phone] at: [address] [id number] Director: Gale Moseley MD, Phone: [phone] at: =[address] [id number] Director: Gale Moseley MD, Phone: [phone] No Panel InformationOrdered By: Radha Coley on 01-18-2023 Pathology report final diagnosis Narrative Comment . [facility] Comment on above: NEGATIVE FOR INTRAEP ITHELIAL LESION OR MALIGNANCY. CNOVon 10-16-2021 CNOV Office Visit (UCWSTR ) CORINNE WEEKS Blair ([id number]) 1975 F Date Time Provider Department 10/16/21 8:45 AM KARIE PALACIOS [facility] During your visit today, we recorded the following information about you: Temperature Pulse Respiration Blood pressure 97.7 degrees 88/minute 16/minute 118/70 Weight 103 kg Karie Palacios APRN.LIE DETECTOR OPERATOR 10/16/2021 10:19 AM Signed Subjective HPI HPI Corinne Blair Micky is a 46 year old female who [...] Brother Regular Screenings - Heart Maternal Grandmother MS - Multiple Sclerosis Daughter - Breast Cancer [...] flags discussed. Agrees to plan Karie Palacios APRN.LIE DETECTOR OPERATOR Referring Provider: SELF [200] Allergies As of Date: 10/16/2021 (No Known Allergies) Date Reviewed: 10/16/2021 Reviewed by: Karie Palacios APRN.LIE DETECTOR OPERATOR - Fully Assessed Reason for Visit: Pain (foot) [760] Cmt: left foot pain, fell down steps this am Primary Visit Diagnosis:Foot injury, left, initial encounter [S99.922A] Other Visit Diagnoses:Right leg injury, initial encounter [S89.91XA] Closed non-physeal fracture of proximal phalanx of lesser toe of left foot, initial encounter [S92.512A] Order(s):XR FOOT GENERAL 3V AP/LAT/OBL LEFT [[id number]] Order #: [id number]. #:[id number] [id number] TIBIA FIBULA 2V AP/LAT RIGHT [[id number]] Order #: [id number]. #:[id number] cephALEXin (KEFLEX) 500 mg capsuleTake 1 capsule [...] Abnormal uter (more content not included)... Normal [facility] No Panel InformationOrdered By: Ccf Provider on 10-16-2021 [facility] No Panel Informationon 10-16 Radiology Study observation (narrative) [facility] XR FOOT 3V AP/LAT/OBL LTon 0 [...] proximal phalanx of the left second toe Platen Press Feeder: KELIN Transcribe Date/Time: Oct 16 2021 9:46A Dictated by : AUGIE RUDD MD This examination was interpreted and the report reviewed and electronically signed by: AUGIE RUDD MD on Oct 16 2021 9:48AM EST [id number] N Normal [facility] XR Foot - left AP and [...] proximal phalanx of the left second toe Platen Press Feeder: [facility] Transcribe Date/Time: Oct 16 2021 9:46A Dictated by : AUGIE RUDD MD This examination was interpreted and the report reviewed and electronically signed by: AUGIE RUDD MD on Oct 16 2021 9:48AM EST DIVISION OF RADIOLOGY Provider, [facility] - 10/16/2021 * * *Final [...] proximal phalanx of the left second toe Platen Press Feeder: [facility] Transcribe Date/Time: Oct 16 2021 9:46A Dictated by : AUGIE RUDD MD This examination was interpreted and the report reviewed and electronically signed by: AUGIE RUDD MD on Oct 16 2021 9:48AM EST [facility] XR TIBIA FIBULA 2V AP/LAT RT [...] Impression: 1. No acute fracture or dislocation. Platen Press Feeder: [facility] Transcribe Date/Time: Oct 16 2021 9:49A Dictated by : AUGIE RUDD MD This examination was interpreted and the report reviewed and electronically signed by: AUGIE RUDD MD on Oct 16 2021 9:49AM EST [id number] N Normal [facility] XR Tibia and Fibula - right [...] Impression: 1. No acute fracture or dislocation. Platen Press Feeder: [facility] Transcribe Date/Time: Oct 16 2021 9:49A Dictated by : AUGIE RUDD MD This examination was interpreted and the report reviewed and electronically signed by: AUGIE RUDD MD on Oct 16 2021 9:49AM EST DIVISION OF RADIOLOGY Provider, [facility] - 10/16/2021 * * *Final [...] Impression: 1. No acute fracture or dislocation. Platen Press Feeder: [facility] Transcribe Date/Time: Oct 16 2021 9:49A Dictated by : AUGIE RUDD MD This examination was interpreted and the report reviewed and electronically signed by: AUGIE RUDD MD on Oct 16 2021 9:49AM [facility] No Panel Informationon 09-06 POC SARS CoV-2 Antigen Negative [facility] Work Phone: Vital Signs Date Time Vital Sign Value Performing Clinician Faci lity 02-01-2025 15:19-0400 Body height 172.[address] Marilin Max MD Work Phone: [facility] 02-01-2025 15:10-0400 Body mass index (BMI) [Ratio] 36.8 kg/m2 Dr. Marilin Max MD Work Phone: [facility] 02-01-2025 15:10-0400 Body weight 109.[address] Marilin Max MD Work Phone: [facility] 02-01-2025 15:10-0400 Diastolic blood pressure 82 mm[Hg] Dr. Marilin Max MD Work Phone: [facility] 02-01-2025 15:10-0400 Systolic blood pressure 124 mm[Hg] Dr. Marilin Max MD Work Phone: [facility] 01-18-2023 15:28-0400 Body height 172.[address] Marilin Max Work Phone: [facility] 01-18-2023 15:09-0400 Body mass index (BMI) [Ratio] 34.9 kg/m2 Dr. Marilin Max Work Phone: [facility] 01-18-2023 15:09-0400 Body weight 104.[address] Marilin Max Work Phone: [facility] 01-18-2023 15:09-0400 Diastolic blood pressure 77 mm[Hg] Dr. Marilin Max Work Phone: [facility] 01-18-2023 15:09-0400 Systolic blood pressure 121 mm[Hg] Dr. Marilin Max Work Phone: [facility] 09-06-2021 09:45-0500 Body height 172.[address] Marilin Max Work Phone: [facility] Work Phone: 09-06-2021 09:45-0500 Body mass index (BMI) [Ratio] 34.3 kg/m2 Dr. Marilin Max Work Phone: [facility] Work Phone: 09-06-2021 09:45-0500 Body temperature 97.5 [degF] Dr. Marilin Max Work Phone: [facility] Work Phone: 09-06-2021 09:45-0500 Body weight 102.[address] Marilin Max Work Phone: [facility] Work Phone: 09-06-2021 09:45-0500 Diastolic blood pressure 62 mm[Hg] Dr. Marilin Max Work Phone: [facility] Work Phone: 09-06-2021 09:45-0500 Heart rate 93 /min Dr. Marilin Max Work Phone: [facility] Work Phone: 09-06-2021 09:45-0500 Respiratory rate 16 /min Dr. Marilin Max Work Phone: [facility] Work Phone: 09-06-2021 09:45-0500 SaO2% (BldA) [Mass fraction] 98 % Dr. Marilin Max Work Phone: [facility] Work Phone: 09-06-2021 09:45-0500 Systolic blood pressure 126 mm[Hg] Dr. Marilin Max Work Phone: [facility] Work Phone: Encounters Encounter Date Encounter Type Care Provider Facility Start: 03-17-2025 ambulatory No Primary Car e Physician Facility:[facility] Start: 02-17-2025 End: 02-17-[address] Marilin Max MD Work Phone: -Outpatient [facility] Start: 02-17-2025 End: 02-17-2025 Patient encounter procedure Radha Guillen HUMAN SERVICES INSTRUCTOR-C -Outpatient Breast Imaging Work Phone: Start: 02-17-2025 End: 02-17-2025 ambulatory Radha Mutual HUMAN SERVICES INSTRUCTOR Facility:[facility] Start: 02-12-2025 End: 02-12-[address] Marilin Max MD Work Phone: [facility] Work Phone: Start: 02-12-2025 End: 02-12-2025 Patient encounter procedure Radha Mindy HUMAN SERVICES INSTRUCTOR-C -Outpatient Breast Imaging Work Phone: Start: 02-12-2025 End: 02-12-2025 ambulatory Radha Mindy HUMAN SERVICES INSTRUCTOR Facility:[facility] Start: 02-01-2025 End: 02-01-2025 Patient encounter procedure Radha Mindy HUMAN SERVICES INSTRUCTOR-C -[facility] Work Phone: Start: 02-01-2025 End: 02-01-2025 Patient encounter status Radha FUENTES [facility] Start: 02-01-2025 End: 02-01-[address] Marilin Max MD Work Phone: [facility] Work Phone: Start: 01-23-2023 End: 01-23-[address] Marilin Max Work Phone: [facility] Work Phone: Start: 01-23-2023 End: 01-23-[address] Marilin Max Work Phone: [facility]-Outpatient Breast Imaging Work Phone: Start: 01-18-2023 End: 01-18-[address] Marilin Max Work Phone: [facility]-Laboratory, Specimen Work Phone: Start: 01-18-2023 End: 01-18-[address] Marilin Max Work Phone: [facility] Work Phone: Start: 11-02-2021 End: 11-02-[address] Marilin Max Work Phone: [facility]-Radiology, [place] Start: 10-16-2021 End: 10-16-2021 Subsequent hospital visit by physician Xr [facility] Work Phone: Radiology Comment on above: Foot injury, left, i nitial encounter [S99.922A] Start: 09-06-2021 End: 09-06-[address] Marilin Max Work Phone: [facility] Procedures Date Procedure Procedure Detail Performing Clinician Start: 02-17-[address] Marilin Max MD Work Phone: Start: 02-17-[address] Marilin Max MD Work Phone: Start: 02-12-2025 Vitamin D, 25-hydrox y measurement Dr. Marilin Max MD Work Phone: Comment on above: Vitamin D StatusDefi ciency: <20 ng/mL (50nmol/L)Insufficiency: 20-30 ng/mL (50-75 nmol/L)Sufficiency: 30-100 ng/mL (75-250 nmol/L)Toxicity: >100 ng/mL (>250 nmol/L) Start: 02-12-2025 Screening mammography Dixie Max MD Work Phone: Start: 01-23-2023 Screening mammography Dixie Max Work Phone: Start: 11-02-[address] Marilin Max Work Phone: Start: 10-16-2021 Radex foot complete minimum 3 views Karie Palacios APRN.LIE DETECTOR OPERATOR Work Phone: Start: 04-14-2016 Lipid 1996 panel - S mustapha or Plasma Xr Horacio Work Phone: Start: 10-27-2014 Colonoscopy Xr Horacio Work Phone: Plan of Treatment Date Care Activity Detail Author Start: 02-01-2025 Patient referral [facility] Work Phone: Start: 04-26-2024 Covid-19 Vaccine ( season) Covid-19 Vaccine ( season) [facility] Start: 04-26-2024 Influenza vaccination Influenza Vaccine (#1) [facility] Start: 2023 Shingrix Vaccine (1 of 2) Shingrix Vaccine (1 of 2) [facility] Start: 11-19-2021 Screening for malignant neoplasm of cervix Cervical Cancer Screening [facility] Start: 04-14-2021 Lipid panel Lipid Screening [facility] Start: 08-20-2019 Diabetes Screening Diabetes Screening [facility] Start: 2018 Screening for malignant neoplasm of colon [facility] Start: 11-19-2017 Screening for malignant neoplasm of breast Mammogram Screening [facility] Start: 10-27-2017 Screening for malignant neoplasm of colon [facility] Start: 1992 Hepatitis B Vaccine (1 of 3 - 19+ 3-dose series) Hepatitis B Vaccine (1 of 3 - 19+ 3-dose series) [facility] Start: 1992 Urine microalbumin profile DTaP,Tdap,Td Vaccine (1 - Tdap) [facility] Start: 1991 Depression Screening Depression Screening [facility] Start: 1991 Hepatitis C screening Hepatitis C Screening [facility] Start: 1991 HIV screening HIV Screening [facility] Colonoscopy [facility] Glucose [Mass/volume ] in Serum or Plasma [facility] Lipid 1996 panel - S mustapha or Plasma [facility] MG Breast - bilatera l Screening [facility] Patient referral [facility] Work Phone: Thyroid stimulating hormone measurement [facility] Vitamin D, 25-hydrox y measurement [facility] Immunizations Immunization Date Immunization Notes Care Provider Fa [facility] 05-22-2016 influenza virus vaccine, unspecified formulation Xr Penelope Work Phone: [facility] 05-24-2009 influenza virus vaccine, unspecified formulation Xr Penelope Work Phone: [facility] Work Phone: Payers Date Payer Category Payer Unknown [id number] 2025 Self-pay [id number] 2025 Unknown [id number] 2020 Unknown [employer] PPO OOS [id number] 2020-Present [phone] [address] [place] [address] PPO [id number] Private Health Insurance [id number] Unknown [id number] Unknown [id number] Unknown [id number] Unknown [id number] Unknown [id number] Unknown [id number] Unknown [id number] 62 Unknown [id number] Social History Date Type Detail Facility Start: 09-06-2021 End: 01-18-2023 Tobacco smoking status [facility] Unknown if ever smoked [facility] Start: 07-09-2018 Cigarettes [facility] Start: 1975 Sex Assigned At Female W [facility] Start: 11-02-2015 End: 01-18-2023 Tobacco smoking status NEIS Ex-smoker [facility] History of tobacco use Current smoker [facility] History of tobacco use Cigarette Smoker [facility] Start: 11-02-2015 End: 10-16-2021 Cigarettes smoked current (pack per day) - Reported 0.8 [facility] Start: 11-02-2015 Tobacco use and exposure Smokeless tobacco non-user [facility] Start: 10-16-2021 Alcoholic beverage intake Current drinker of alcohol (finding) [facility] Start: 10-16-2021 Tobacco use panel [facility] Start: 11-19-2016 Alcohol Comment [facility] Start: 1975 Sex assigned at Not on file [facility] Start: 09-16-2021 End: 10-16-2021 Exposure to SARS-CoV-2 (event) Not sure [facility] Clinical Notes 10-16-2021 to 02-17-2025 Note Date & Type Note Facility 02-17-2025 Radiology Diagnostic study note [facility] Imaging Services [address] [place] [address] Breast Limited Unilateral MR#: [id number] Acct: [id number] Name: CORINNE WEEKS Rep #: [id number] : 1975 F 49 From: Stephany Contreras MD PCP: Care Physician,No Primary Status: REG CLI Study:Breast Limited Unilateral Date of Exam: 02/17/25 Exam# [id number] Ordering Dr: Radha Guillen HUMAN SERVICES INSTRUCTOR HUMAN SERVICES INSTRUCTOR-C PROCEDURE: DIAG MAMM W/CAD, UNILAT; BREAST LIMITED UNILATERAL REASON FOR EXAM: 49-year-old female presents for follow-up of the right breast finding seen on examination of 02/12/2025. Family history of breast cancer in 2 paternal aunts. TECHNIQUE: Right diagnostic digital breast tomosynthesis with 2D and 3D images. Computer aided detection. Also, targeted right breast ultrasound was performed. COMPARISON: Prior exam(s) dated 02/12/2025, 01/23/2023, 06/15/2019. FINDINGS: MAMMOGRAM: The breasts are heterogeneously dense which may obscure small masses. The mammogram demonstrates that the patient has dense breasts. Supplemental screening with whole breast ultrasound or MRI may be considered for further evaluation. Follow-up examination performed for the asymmetry in the inferior right breast seen on examination of 02/12/2025. On the present examination, the asymmetry in the inferior right breast at middle depth does notpersist. Also, there is a stable mass in the upper inner right breast at posterior depth which appears stable dating back on multiple priors to 2019. ULTRASOUND: Ultrasound was targeted to the right breast inferior and upper inner breast. Ultrasound performed of the inferior right breast demonstrates no sonographic correlate for the mammographic finding. However, there is an incidentally noted hypoechoic area at 9 o'clock 5 cm from the nipplemeasuring 0.7 x 0.4 x 0.3 cm, this may represent entrapped fat. Also, at 1 o'clock 5 cm from the nipple there is an oval circumscribed mass measuring 2.1 x 1.8 x 0.9 cm, this may represents a fibroadenoma and correlates to the stable mass seen on prior mammograms dating back to 2019. US/Breast Limited Unilateral IMPRESSION: 1. Stable benign right breast mass at 1 o'clock likely represents a fibroadenomaand has been mammographically stable dating back to 2019. 2. There is no evidence of malignancy in the right breast. BI-RADS 2: BENIGN. RECOMMEND ANNUAL MAMMOGRAPHIC SCREENING. Follow-up code: Routine Follow-up Reading Location: [id number] CC: GINA Guillen; No Primary Care Physician ~ Platen Press Feeder: Signed [facility] 02-01-2025 Evaluation note Diagnosis Onset Date Resolution Encounter for routine gynecological examination noneactive February 01, 2025 3:04pm [facility] Work Phone: [phone] 740-250905-26-2023 NotePap Smear Specimen AdequacyMay 2022 5:05pmComment.Satisfactory for evaluation. Endocervical and/or squamous metaplasticcells (endocervical component)are present.[facility]AC[facility] A#[id number] Hospitals TriPoint Medical CenterComment on above:Satisfactory for evaluation. Endocervical and/or squamous metaplasticcells (endocervical component)are present.10-16-2021 NoteHNO ID: [id number] Author: Karie Palacios APRN.LIE DETECTOR OPERATOR Service: ? Author Type: Nurse Practitioner Type: [...] Brother Regular Screenings - Heart Maternal Grandmother MS - Multiple Sclerosis Daughter - Breast Cancer [...] flags discussed. Agrees to plan Karie Palacios APRN.[facility]02-21-2022 NoteHNO ID: [id number] Author: RT Jose(R) Service: Radiology Author Type: [...] BY: RT Jose(R) October 16, 2021 9:21 [facility]02-21-2022 History of Present illness Narrative* Delores Levy RT(R) - 10/16/2021 9:20 AM EST Radiology Service Progress Note PATIENT NAME: Corinne Weeks DATE OF SERVICE: October 16, 2021 TIME: 9:21 AM PATIENT IDENTITY VERIFICATION COMPLETED USING TWO (2) IDENTIFIERS: Name and Date of confirmedby patient verbally. FALL SCREENING: Has the patient had 2 falls in the last year or 1 fall with injury or currently using an Ambulatory Assistive Device (Walker, Cane, Wheelchair, Crutches, etc.)? No PATIENT GENDER DATA: Female. status: : No status: NO. PATIENT RELEVANT IMPLANT DATA REVIEWED: Yes RADIOLOGY DEPARTMENT: General X-ray: Exam(s) Completed: Lower Extremity X- Ray(s): Tibia Fibula, Right and Foot, Left and Wt. Bearing PERIPHERAL IV DATA: Not applicable SIGNED BY: RT Jose(R) October 16, 2021 9:21 AM documented in [facility] HospitalEvaluation [facility]* Diagnosis Onset Date Resolution Status Acute bronchitis, unspecified acute Encounter for screening for COVID-19 acute [facility] Work Phone: Evaluation note* Diagnosis Onset Date Resolution Status Encounter for routine gynecological examination noneactive [facility] Work Phone: Evaluation note* Diagnosis Onset Date Resolution Status Admit Date Encounter for routine gynecological examination noneactive February 012024 3:04pm [facility] Work Phone: Hospital Discharge instructionsAmbulatory Orders* General Surgery Location: None Selected [facility] Work Phone: Reason for visit Narrative* Diagnostic Procedure Only (Urgent) - Closed Specialty Diagnoses / Procedures Referred By Michelle bowling Referred To Contact XR IMAGING Diagnoses Foot injury, left, initial encounter Procedures XR FOOT GENERAL 3V AP/LAT/OBL LEFT RADEX FOOT COMPLETE MINIMUM 3 VIEWS Karie Palacios APRN.LIE DETECTOR OPERATOR [address] [place] [address] [place] [address] Referral ID Status Reason Start Date Expiration Date V isits Requested Visits Authorized [id number] Closed Auto-Generate d Referral 10/16/2021 11/15/2022 1 1 [facility] Summary Purpose Family History No Family History Records Found Relationship Condition Age at Onset Recorded Date/T gavi mother Malignant neoplasm of colon Unknown Hypertension Unknown father Diabetes mellitus Unknown Advance Directives No Advanced Directives Records Found Advance Directive Response Recorded Date/ Time Living Will No July 09 018 11:32am Power of Reinsurance Clerk No July 09, 2018 11:32am Chief Complaint and Reason for Visit Chief Complaint CONGESTION/COVID BARBARA T LEFT FOOT XRAY - FRACTURE FOLLOW UP Reason for Visit Acute bronchitis, un specified Encounter for screening for COVID-19 Chief Complaint Annual (CALL CENTER TRAINER) SCREENING Reason for Visit Encounter for routin e gynecological examination Chief Complaint Admit Date Annual (CALL CENTER TRAINER) February 01, 2025 3:04p m Reason for Visit Admit Date Encounter for routine gynecological exam ination February 01, 2025 3:04pm Chief Complaint Admit Date Annual (CALL CENTER TRAINER) February 01, 2025 3:04p m Screening for breast cancer February 12 7:10am INT LABS February 12, 2025 7:34 am ABN MAMM February 17, 2025 12:4 9pm Additional Source Comments INFORMATION SOURCE (unrecogn ized section and content) DATE CREATED AUTHOR 11/13/2021 [facility] DATE CREATED AUTHOR AUTHOR'S ORGANIZ ATION 03/16/2025 [facility] Goals (unrecognized section and content) [...] Team Status: Active Member Role Status Dates No Primary Care Physician Primary Care Provider Active Team Status: Inactive Member Role Status Dates Dr. Marilin Max MD Primary Care Provider Active Start: February 01, 2025 End: February 01, 2025 Dr. Marilin Max MD Referring Provider Active Start: February 01, 2025 End: February 01, 2025 Radha Guillen NP HUMAN SERVICES INSTRUCTOR-C Attending Provider Active Start: February 01, 2025 End: February 01, 2025 Team Status: Active Member Role Status Dates Radha Guillen NP HUMAN SERVICES INSTRUCTOR-C Attending Provider Active Start: February 12, 2025 Radha Guillen NP HUMAN SERVICES INSTRUCTOR-C Referring Provider Active Start: February 12, 2025 No Primary Care Physician Primary Care Provider Active Start: February 12, 2025 Team Status: Inactive Member Role Status Dates No Primary Care Physician Primary Care Provider Active Start: February 12, 2025 End: February 12, 2025 Radha Guillen NP HUMAN SERVICES INSTRUCTOR-C Attending Provider Active Start: February 12, 2025 End: February 12, 2025 Radha Guillen NP HUMAN SERVICES INSTRUCTOR-C Referring Provider Active Start: February 12, 2025 End: February 12, 2025 Team Status: Active Member Role Status Dates No Primary Care Physician Primary Care Provider Active Start: February 17, 2025 Radha Guillen HUMAN SERVICES INSTRUCTOR, HUMAN SERVICES INSTRUCTOR-C Attending Provider Active Start: February 17, 2025 Radha Guillen HUMAN SERVICES INSTRUCTOR, HUMAN SERVICES INSTRUCTOR-C Referring Provider Active Start: February 17, 2025 Team Status: Active Member Role Status Dates [...] Active Radha Coley CNM Attending Provider Active Sql Architect Relationship Specialty Start Date End Date Marilin Max MD [address] [place] [address] PCP - General Family Medicine 03/29/20 Team Status: Active Member Role/Relationship Status Dates No Primary Care Physician Primary Care Provider Active Team Status: Inactive Member Role/Relationship Status Dates Dr. Marilin Max MD Primary Care Provider Active Start: February 01, 2025 End: February 01, 2025 Dr. Marilin Max MD Referring Provider Active Start: February 01, 2025 End: February 01, 2025 Radha Guillen HUMAN SERVICES INSTRUCTOR, HUMAN SERVICES INSTRUCTOR-C Attending Provider Active Start: February 01, 2025 End: February 01, 2025 Team Status: Inactive Member Role/Relationship Status Dates Radha Guillen HUMAN SERVICES INSTRUCTOR, HUMAN SERVICES INSTRUCTOR-C Attending Provider Active Start: February 12, 2025 End: February 12, 2025 Radha Guillen HUMAN SERVICES INSTRUCTOR, HUMAN SERVICES INSTRUCTOR-C Referring Provider Active Start: February 12, 2025 End: February 12, 2025 No Primary Care Physician Primary Care Provider Active Start: February 12, 2025 End: February 12, 2025 Team Status: Inactive Member Role/Relationship Status Dates No Primary Care Physician Primary Care Provider Active Start: February 12, 2025 End: February 12, 2025 Radha Traores HUMAN SERVICES INSTRUCTOR, HUMAN SERVICES INSTRUCTOR-C Attending Provider Active Start: February 12, 2025 End: February 12, 2025 Radha Mindy HUMAN SERVICES INSTRUCTOR, HUMAN SERVICES INSTRUCTOR-C Referring Provider Active Start: February 12, 2025 End: February 12, 2025 Team Status: Active Member Role/Relationship Status Dates No Primary Care Physician Primary Care Provider Active Start: February 17, 2025 Radha Mutual HUMAN SERVICES INSTRUCTOR, HUMAN SERVICES INSTRUCTOR-C Attending Provider Active Start: February 17, 2025 Radha [employer] HUMAN SERVICES INSTRUCTOR, HUMAN SERVICES INSTRUCTOR-C Referring Provider Active Start: February 17, 2025 Team Status: Inactive Member Role/Relationship Status Dates No Primary Care Physician Primary Care Provider Active Start: February 17, 2025 End: February 17, 2025 Radha Wilsontings HUMAN SERVICES INSTRUCTOR, HUMAN SERVICES INSTRUCTOR-C Attending Provider Active Start: February 17, 2025 End: February 17, 2025 Radha Mindy HUMAN SERVICES INSTRUCTOR, HUMAN SERVICES INSTRUCTOR-C Referring Provider Active Start: February 17, 2025 End: February 17, 2025 Source Comments (unrecognize d section and content) In the event this informatio n is protected by the Federal Confidentiality of Alcohol and Drug Abuse Patient Records regulations: The Federal rules restrict any use of the information to criminally investigate or prosecute any alcohol or drug abuse patient.[facility] FOR RECORDS PERTAINING TO PATIENTS WHO ARE [...] BE BASED ON THE PRIMARY CLINICAL RECORDS. [employer] [facility]. provides no warranty or guarantee of the accuracy or completeness of information in this document.
[2025-03-17] MEDS: Lactated Ringers 1,000 ML 15 ML IV (06:57)
--- NOTE | 2025-03-17 07:24 | H&P.OPEN ---
[facility] - General General Date of Service: 03/17/25 HPI Narrative SERGIO LOPEZ, is a 49 F who presents for screening colonoscopy. Patient last colonoscopy was in 2018?in 2014 patient had an 11 mm tubular adenoma in the descending colon which was removed with snare.. Patient has family history of colon cancer in her mother- 78 years old when diagnosed. Patient denies any chronic abdominal pain/nausea/vomiting/reflux. Patient has bowel movements daily denies any blood. [facility] Medical History Wears glasses Wears dentures Post-menopausal Alcohol use Former smoker History of endometrial biopsy Home Medications ?Medication ?Instructions ?Recorded ?Last Taken ?Type NK 01/22/24 Unknown History Allergy/AdvReac Type Severity Reaction Status Date / Time No Known Allergies Allergy Verified 03/15/25 10:11 Family History Mother Colon cancer Hypertension Father Diabetes Surgical History History of endometrial ablation Social History Smoking Status: Former smoker alcohol intake: current alcohol intake frequency: a few times a week Past Medical/Surgical History Planned Operation Planned Operative Procedure(s): COLONOSCOPY-OA S.O.S: No Previous Hospitalizations/Surgeries HX Hospitalizations: No HX of Surgeries: UTERINE ABLATION COLONOSCOPY Any Problems With Anesthesia: No You/Your Family Experience Fever (Hyperthermia) With Anes: No Cholinesterase deficiency: No Cardiovascular Hx Chest Pain within Last 2 months: No Hx of Irregular Heartbeat and/or Afib: No Hx Heart Attack: No Hx Congestive Heart Failure: No Hx Rheumatic Fever: No Hx Hypertension: No Hx Internal Defibrillator: No Hx Pacemaker: No Hx Cardiac Catheterization: No Hx Cardiac Surgery/Stents/Etc.: No Hx Stress Test: No Hx Pain in Legs when Walking/Leg Cramps: No Respiratory Chronic Cough: No HX of Shortness of Breath: No Hoarseness: No Hx Chronic Obstructive Pulmonary Disease (COPD): No Hx Asthma: No Hx Emphysema: No Hx Sleep Apnea: No Hx Respiratory Tract Infection/Cold (presently): No Do You Snore Loudly (louder than talking or can be heard): No Do You Often Feel Tired/ Fatigued/ Sleepy Dring Daytime?: No Has Anyone Observed You Stop Breathing During Sleep?: No Result (for STOP score): Negative Hx Smoking: Yes (QUIT 2014) Smoking Status: Former smoker Gastrointestinal Hx Gastrointestinal Disorders: Yes (HX COLON POLYP) Hx Gastrointestinal Bleed: No Hx Ulcer: No Hx Hiatal Hernia: No Difficulty Chewing/Swallowing: No Special diet followed at home: No Hx Unplanned Weight Loss of 20#: No HX Unplanned Weight Gain of 20#: No Neurological Hx Seizures: No HX Syncope/Blackout Spells/Unconsciousness: No Hx Transient Ischemic Attacks (TIA): No Hx Multiple Sclerosis: No Hx Parkinson's Disease: No Hx Head/Neck Injury: No Hx Headaches: No Hx Back Injury/Pain: Yes (HX BACK PAIN) Recent Onset of Speech Difficulty: No Restless Legs: No Does patient have nerve stimulator: No Blood Disorder Hx Leukemia: No Bleeding Tendencies: No Hx Deep Vein Thrombosis: No Hx High Cholesterol: No Blood Transmitted Disease: No Hx Hepatitis: No Hx Cirrhosis: No Hx Anemia: No Hx Blood Disorders: No Reproduction : No Is Patient Lactating: No Hx Hysterectomy: No Hx Tubal Ligation: No (UTERINE ABLATION) Are You Post Menopause: No Genitourinary Hx Renal Disease: No Musculoskeletal Hx Arthritis: No Hx Rheumatoid Arthritis: No Hx Gout: No Recent Onset of an Orthopedic Problem: No Endocrine Hx Diabetes: No Thyroid Disease: No Hx Steroid Therapy: No Psycho/Social Hx Substance Use: No Hx Alcohol Use: Yes (1 GLASS WINE/ FEW TIMES/WEEK) Hx Anxiety: No Hx Depression: No Mental Illness: No Hx Dementia: No Miscellaneous Hx Cancer: No Recent Exposure to Contagious Disease: No Hx of C-Diff: No Any Loose Teeth: Yes (UPPER DENTURE) Allergies No Known Allergies Allergy (Verified 03/15/25 10:11) Discharge Is Pt Admitted From a Correction, or a Care Home: No After D/C, Where Do you Plan to Go: Return Home Vital Signs Vital Signs Vital Signs: 03/17/25 06:45 03/17/25 06:45 Temperature 97.6 F L Temperature Source Temporal Pulse Rate 68 Respiratory Rate 16 Respiratory Pattern Normal Blood Pressure 95/63 Blood Pressure Mean 73 Blood Pressure Source Monitor Blood Pressure Position Semi-Fowlers Blood Pressure Location Left Arm Pulse Ox 99 Oxygen Delivery Method Room Air Weight Weight: 235 lb 14.314 oz Body Mass Index (BMI) 35.9 Assessment & Plan Assessment/Plan (1) Hx of colonic polyps: Surgery Risks - Colonoscopy I discussed with the patient the risks of the procedure: Yes Risks Include but are not Limited To: Risks include but are not limited to: Bleeding, perforation requiring further surgery, inability to complete colonoscopy requiring barium enema.
--- NOTE | 2025-03-17 07:33 | PCM.PRE.AN2 ---
ASA Classification* ASA Classification ASA Classification: 2 Assessment & Plan Anesthesia* Anesthesia Assessment Anesthesia Assessment: Discussed sedation and/or anesthesia options, risks, benefits, and alternatives with patient/parents/legal guardian/POA. Questions invited. The patient/parents/legal guardian/POA seems to understand and agrees to proceed with anesthesia plan. Reviewed the physical assessment, medical history, allergy history and patient home medications list prior to surgery/procedure/anesthetic and documented any changes. Performed airway and anesthesia risk assessments. Anesthesia Type Anesthesia Type: MAC History Source History Obtained from:: Patient and Chart Anesthesia Focused Assessment* Temperature: 97.6 F Pulse Rate: 68 Blood Pressure: 95/63 Respiratory Rate: 16 Pulse Ox: 99 Oxygen Delivery Method: Room Air Airway Assessment Mouth opens: >3 cm Mallampati Score: III Teeth Condition: Dentures (Upper dentures will stay in.) and Missing (Missing several teeth right lower jaw. Rest of the teeth are tight.) Neck Range of motion (ROM): Full ROM Labs Anesthesia Preop lab: CBC WBC 8.3 K/mm3 (4.4-11.0) 07/09/18 08:51 07/09/18 RBC 4.48 M/mm3 (4.2-5.4) 07/09/18 08:51 07/09/18 Hgb 13.9 g/dl (12.0-15.0) 07/09/18 08:51 07/09/18 Hct 42.6 % (37-47) 07/09/18 08:51 07/09/18 Plt Count 269 K/mm3 (150-450) 07/09/18 08:51 07/09/18 CHEMISTRY Potassium 4.4 mmol/L (3.5-5.1) 07/09/18 08:51 07/09/18 Sodium 142 mmol/L (136-145) 07/09/18 08:51 07/09/18 BUN 16 mg/dL (7-18) 07/09/18 08:51 07/09/18 Creatinine 0.92 mg/dL (0.55-1.02) 07/09/18 08:51 07/09/18 Glucose 81 mg/dL (70-99) 02/12/25 07:39 02/12/25 TSH 3.820 uIU/mL (0.300-4.200) 02/12/25 07:39 02/12/25 COAG Urine Test Negative Negative 07/14/18 07:50 07/14/18 Pre-Assessment Diagnosis/Proposed Procedure Planned Operative Procedure(s): COLONOSCOPY-OA Anesthesia History 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 When Was Last Pacemaker Check QUESTION #4 FULL TEXT: You/Your Family Experience fever (hyperthermia) with Anesthesia Last Oral Intake Last Oral intake: Last Oral Intake NPO since 00:00 03/17/25 06:45 Meds taken in AM with sips of No 03/17/25 06:45 water? Meds patient instructed to take am of surgery PONV PONV - workers' compensation claims supervisor: PONV - workers' compensation claims supervisor Female Yes 03/15/25 10:18 HX of Motion Sickness No 03/15/25 10:18 HX of N/V After Surgery No 03/15/25 10:18 Non-Smoker Yes 03/15/25 10:18 Duration of Surgery greater No 03/15/25 10:18 than 60 minutes Number of Risk Factors 2 03/15/25 10:18 PONV Score Moderate Risk 03/15/25 10:18 Height & Weight Height & Weight: Anesthesia: Height & Weight Height 5 ft 8 in 03/17/25 06:45 Weight: 107 kg 03/17/25 06:45 Body Mass Index (BMI) 35.9 03/17/25 06:45 Respiratory Assessment Respiratory Assessment - workers' compensation claims supervisor: Respiratory Tract Infection Hx - workers' compensation claims supervisor Hx Respiratory Tract Infection No 03/17/25 07:27 STOP Sleep Apnea STOP Sleep Apnea - workers' compensation claims supervisor: STOP Sleep Apnea - workers' compensation claims supervisor Hx Hypertension No 03/17/25 07:27 Hx Sleep Apnea No 07/23/25 07:27 CPAP BIPAP Do you snore loudly (louder No 03/17/25 07:27 than talking or can be heard Do you often feel tired/ No 03/17/25 07:27 fatigued/ sleepy during daytime? Has anyone observed you stop No 03/17/25 07:27 breathing during sleep? STOP Results Negative 03/17/25 07:27 QUESTION #5 FULL TEXT : Do you snore loudly (louder than talking or can be heard through closed doors)? 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 Specify any problems Hx of Preganancy in last 3 No 03/15/25 10:18 Months Nurse Filling Out Transfusion VCHRISTIN 03/15/25 10:18 & Questions: Date: 03/15/25 03/15/25 10:18 Time: 10:19 03/15/25 10:18 Patient unable to answer at this time (ie. confused, unrespo /Reproduction History /Reproductive History - workers' compensation claims supervisor: /Reproductive Hx- workers' compensation claims supervisor Hx Now No 03/17/25 07:27 Gestational Age (in weeks): EDC: Hx Hx Para Hx Section SAB No 03/15/25 10:18 Active Medications Active Medications: Current Medications Generic Name Dose Route Start Last Admin Trade Name Freq PRN Reason Stop Dose Admin Lactated Ringer's 1,000 mls @ 15 mls/hr 03/17/25 06:45 03/17/25 06:57 IV 15 mls/hr .Q48H KELLY Administration PFSH Medical History Wears glasses Wears dentures Post-menopausal Alcohol use Former smoker History of endometrial biopsy Home Medications ?Medication ?Instructions ?Recorded ?Last Taken ?Type NK 01/22/24 Unknown History Allergy/AdvReac Type Severity Reaction Status Date / Time No Known Allergies Allergy Verified 03/15/25 10:11 Family History Mother Colon cancer Hypertension Father Diabetes Surgical History History of endometrial ablation Social History Smoking Status: Former smoker alcohol intake: current alcohol intake frequency: a few times a week Review of Systems (Anesthesia) ROS Narrative System reviewed and no additional complaints, except as documented.
--- NOTE | 2025-03-17 08:57 | OP.CCLET_ITS ---
03/17/2025 No Primary Care Physician Re : Colonoscopy procedure for Corinne Weeks Dear Care Physician This procedure was performed on Monday, March 17, 2025. My impressions and recommendations are as follows: Impressions : - Diverticulosis in the sigmoid colon. - The examination was otherwise normal. - The examined portion of the ileum was normal. - No specimens collected. Recommendations : - Discharge patient to home. - Resume previous diet. - Continue present medications. - Repeat colonoscopy in 7 years for surveillance. My findings are described in the full procedure note, which is enclosed. If I can be of further assistance, please feel free to contact me at Doctor phone number(s): , Work: . Sincerely, MD Monet Nguyễn MD 03/17/2025 8:57:00 AM This report has been signed electronically.
--- NOTE | 2025-03-17 08:57 | OP.COLON_ITS ---
Patient Name: Corinne Weeks Procedure Date: 03/17/2025 8:27 AM Date of : 1975 Age: 49 Procedure: Colonoscopy Indications: High risk colon cancer surveillance: Personal history of adenoma (10 mm or greater in size) Providers: Monet Brewster MD Referring MD: No Primary Care Physician Medicines: Monitored Anesthesia Care Patient Profile: This is a 49 year old female. Last Colonoscopy: June 2018. Complications: No immediate complications. Procedure: Pre-Anesthesia Assessment: - Prior to the procedure, a History and Physical was performed, and patient medications and allergies were reviewed. The patient's tolerance of previous anesthesia was also reviewed. The risks and benefits of the procedure and the sedation options and risks were discussed with the patient. All questions were answered, and informed consent was obtained. Prior Anticoagulants: The patient has taken no anticoagulant or antiplatelet agents. ASA Grade Assessment: Per anesthesia. After reviewing the risks and benefits, the patient was deemed in satisfactory condition to undergo the procedure. After I obtained informed consent, the scope was passed under direct vision. Throughout the procedure, the patient's blood pressure, pulse, and oxygen saturations were monitored continuously. The colonoscope was introduced through the anus and advanced to the terminal ileum. The colonoscopy was performed without difficulty. The patient tolerated the procedure well. The quality of the bowel preparation was good. Scope In: 8:37:05 AM Scope Withdrawal Time 0 hours 8 minutes 54 seconds Scope Out: 8:49:32 AM Total Procedure Duration Time 0 hours 12 minutes 27 seconds Findings: A few small-mouthed diverticula were found in the sigmoid colon. The exam was otherwise without abnormality. The terminal ileum appeared normal. Impression: - Diverticulosis in the sigmoid colon. - The examination was otherwise normal. - The examined portion of the ileum was normal. - No specimens collected. Recommendation: - Discharge patient to home. - Resume previous diet. - Continue present medications. - Repeat colonoscopy in 7 years for surveillance. Procedure Code(s): --- Professional --- G0105, PT, Colorectal cancer screening; colonoscopy on individual at high risk Diagnosis Code(s): --- Professional --- Z86.010, Personal history of colonic polyps K57.30, Diverticulosis of large intestine without perforation or abscess without bleeding CPT copyright 2021 [employer]. All rights reserved. The codes documented in this report are preliminary and upon fruit dryer review may be revised to meet current compliance requirements. MD Monet Nguyễn MD 03/17/2025 8:57:00 AM This report has been signed electronically. Number of Addenda: 0 Note Initiated On: 03/17/2025 8:27 AM
--- NOTE | 2025-03-17 08:59 | PCM.POST.ANE ---
Anesthesia: Postop Eval I Current Vital Signs Temperature: 97 F Pulse Rate: 67 Blood Pressure: 122/73 Respiratory Rate: 16 Pulse Ox: 98 Oxygen Delivery Method: Room Air Assessment Airway patent: Yes Spontaneous unlabored respirations: Yes Mental status: Awake and Calm nausea: No Vomiting: No Anesthesia Complication: No Fluid Hydration Crystalloid volume administer (ml): 600 Total IV fluid infused: 600 Progress Note Anesthesia document: Postop Eval 1 completed: Yes
--- NOTE | 2025-03-17 18:36 | PCM.POSTANE2 ---
Anesthesia Postop Eval I Sum Postop Eval Completion status Anesthesia document: Postop Eval 1 completed: Yes Anesthesia Postop Eval I Summary Anesthesia Postop Eval I Summary: Anesthesia Postop Eval I: Assessment Summary Airway patent Yes 03/17/25 09:02 [email or web address] Spontaneous unlabored Yes 03/17/25 09:02 [email or web address] respirations Mental status Awake,Calm 03/17/25 09:02 [email or web address] nausea No 03/17/25 09:02 [email or web address] Vomiting No 03/17/25 09:02 [email or web address] Anesthesia Postop Eval I: Fluid Summary Crystalloid volume administer 600 03/17/25 09:02 [email or web address] (ml) Colloids volume administered ( ml) Blood Product volume administered (ml) Total IV fluid infused 600 03/17/25 09:02 [email or web address] Anesthesia Postop Eval I: Summary Notes Anesthesia Complication No 03/17/25 09:02 [email or web address] Anesthesia Complication Comment: Post-operative progress note Anesthesia: Postop Eval II Evaluation Mental status: Awake Pain Level: 0 nausea: No Vomiting: No
== END 2025-03-17 09:30 | disposition home or self-care (01) ==
LOC: EN 06:31 → AC 06:32
PROVIDERS: Visit Provider Surgery
PROC: 0DJD8ZZ Inspection of Lower Intestinal Tract, Via Natural or Artificial Opening Endoscopic (ICD-10-PCS; CPT 45378; principal; 2025-03-17 07:55)
DX: Z12.11 Encounter for screening for malignant neoplasm of colon (principal); K57.30 Diverticulosis of large intestine without perforation or abscess without bleeding; Z87.891 Personal history of nicotine dependence; Z86.0101 Personal history of adenomatous and serrated colon polyps; Z80.0 Family history of malignant neoplasm of digestive organs
CPT/HCPCS: 45378; J2405

== ENCOUNTER → 2025-06-23 | Outpatient (CLI) | payer BC, SELFPAY | END | disposition home or self-care (01) | PROVIDERS: Referring Provider Physician Assistant; Visit Provider Physician Assistant | DX: R82.90 Unspecified abnormal findings in urine (principal) | CPT/HCPCS: 87086; 87088 ==